=== PATIENT | female | born 1965 | race Caucasian/White ===

== ENCOUNTER 2020-09-03 12:33 | Inpatient (IN) ==
[2020-09-03] MEDS ORDERED: 0.9 % SODIUM CHLORIDE 2,000 ML IV ONE (12:56)
[2020-09-03] MEDS ORDERED: ALBUTEROL SULFATE 200 PUFF INHALER INH ONE ×2 (12:56→15:40)
[2020-09-03] MEDS ORDERED: ASPIRIN 81 MG TAB.CHEW CHEWED ONE (12:56)
[2020-09-03] MEDS ORDERED: REMDESIVIR 200 MG in 0.9 % SODIUM CHLORIDE 250 ML IV ONE ×2 (12:56→17:15)
[2020-09-03] MEDS ORDERED: methylPREDNISolone SOD SUCC 125 MG/2 ML VIAL IV ONE (12:56)
--- NOTE | 2020-09-03 13:05 | Emergency Department Note ---
HPI General Chief complaint: Cold/Flu Symptoms Stated complaint: SOB, cough, weakness Time Seen by Provider: 09/03/20 12:46 Source: patient Mode of arrival: wheelchair Limitations: no limitations History of Present Illness HPI Narrative: Narrative: 54-year-old female has been sick for 14 days now. She tested positive for Covid on the fourth or approximately 9 days ago. She is not having significant dyspnea or chest pain. She is having a tight cough that is productive. She is concerned she has pneumonia. She has had fevers nausea but no vomiting diarrhea or belly pain. Less urinating Related Data Home Medications Medication Instructions Recorded Confirmed estradiol [Minivelle] 1 ea TD .TWICE A WEEK 11/16/16 09/03/20 metformin 1,000 mg PO DAILY 09/03/20 09/03/20 Previous Rx's Medication Instructions Recorded albuterol sulfate [Ventolin] 2 puff INH Q4-6HP PRN #1 inhaler 11/16/16 Allergies Allergy/AdvReac Type Severity Reaction Status Date / Time morphine Allergy Intermediate Confusion Verified 05/24/19 09:52 doxycycline Allergy Unknown Hives Verified 11/16/16 16:23 Review of Systems ROS ROS Narrative: Narrative: All systems ED: reviewed and negative except as stated. PFSH Narrative Patient History Narrative: Narrative: Medical/Surgical/Family History All Active Problems Diabetes mellitus type 2, controlled, without complications (Acute) Influenza A (Acute) Gastritis (Acute) Pneumonia due to 2019 novel coronavirus (Acute) Medical History Influenza A (Acute) Surgical History H/O: hysterectomy (Acute) History of (Acute) History of tonsillectomy (Acute) Social History Smoking Status: Never smoker Exam Narrative Narrative: Narrative: Some distress secondary to shortness of breath. Patient is requiring oxygen because of saturations in the 80s. She is on nasal cannula oxygen at this time. Normocephalic atraumatic. She conjunctive are clear sclerae white nonicteric. No nasal discharge or congestion. Oropharynx pink But with dry buccal mucosa. Neck is supple without lymphadenopathy thyromegaly. Heart is regular rate and rhythm no murmur appreciated. Lungs are with crackles bilaterally. I do not hear any wheezes or rhonchi however. She cannot take a deep breath without significant coughing fits. Cough is productive. Abdomen is soft nontender nondistended. No peritoneal signs or guarding. No pedal edema. +2 radial pulse. Alert oriented able to answer questions appropriately but cannot talk in full sentences secondary to dyspnea General Limitations: no limitations Course Vital Signs Vital signs: Vital Signs Temperature 98.3 F 09/03/20 12:36 Pulse Rate 87 09/03/20 12:36 Respiratory Rate 22 09/03/20 12:36 Blood Pressure 138/82 09/03/20 12:36 Pulse Oximetry (%) 93 09/03/20 12:36 Temperature 98.8 F 09/03/20 21:36 Pulse Rate 83 09/03/20 21:47 Respiratory Rate 25 H 09/03/20 21:47 Blood Pressure 140/90 09/03/20 21:47 Pulse Oximetry (%) 92 09/03/20 21:47 MDM MDM Narrative Medical decision making narrative: Narrative: Hypoxic from Covid pneumonia likely. Get chest x-ray start albuterol MDI instead of nebulizer secondary nebulizer risk. We will get basic laboratory. Patient will need to be come in the hospital because of oxygen needs. Start remdesivir steroids and aspirin. Because of the chest pain we will also check a troponin and EKG EKG is unrevealing. The albuterol MDI helped some so we gave her another 2 puffs; She still has a very tight cough that is when she tries to take a deep breath. Chest x-ray is consistent with Covid pneumonia. Her initial chemistries were hemolyzed so this had to be redrawn. Troponin was negative. I discussed the case with Dr. Diana our hospitalist. He agreed to accept the patient for further care and evaluation in the hospital Lab Data Lab results reviewed: Yes I reviewed the patient's lab results. Lab results narrative: ABG shows pH of 7.51 PCO2 39 PO2 69 On oxygen Result diagrams: 09/03/20 13:17 09/03/20 15:42 Labs: Lab Results 09/03/20 09/03/20 09/03/20 Range/Units 13:17 13:17 13:17 WBC 11.0 (4.5-11.0) K/mcL RBC 4.74 (4.00-5.20) M/mcL Hgb 13.2 (12.0-15.0) g/dL Hct 40.0 (36.0-48.0) % POC Hct (36-48) % MCV 84.4 (80.0-100.0) fL MCH 27.8 (26.0-34.0) pg MCHC 33.0 (31.0-36.0) g/dL RDW 13.4 (11.5-14.5) % Plt Count 475 H (140-440) K/mcL MPV 10.1 (7.4-10.4) fL Neut % (Auto) 71.5 (38.0-78.0) % Lymph % (Auto) 18.9 (15.0-49.0) % [place] % (Auto) 7.9 (1.0-12.0) % Eos % (Auto) 1.1 (0.0-7.0) % Baso % (Auto) 0.6 (0.0-2.0) % Lymph # (Auto) 2.08 (1.50-4.80) K/mcL [place] # (Auto) 0.87 (0.10-0.90) K/mcL Eos # (Auto) 0.12 (0.00-0.70) K/mcL Baso # (Auto) 0.07 (0.00-0.20) K/mcL Absolute Neutrophils 7.89 (1.80-8.00) K/mcL VBG Lactic Acid < 0.2 L (0.5-2.0) mmol/L POC Sodium (133-145) mEq/L Sodium TNP POC Potassium (3.3-5.1) mEql/L Potassium TNP POC Chloride (96-108) mEq/L Chloride TNP Carbon Dioxide TNP POC Total CO2 (22-30) mmol/L Anion Gap TNP POC BUN (6-20) mg/dL BUN TNP Creatinine TNP POC Creatinine (0.6-1.2) mg/dL GFR Calculation TNP Glucose TNP POC Glucose (70-105) mg/dL Calcium TNP POC WB Ioniz Calcium (1.16-1.32) mmEq/L Total Bilirubin TNP AST TNP ALT TNP Alkaline Phosphatase TNP Troponin T (<0.03) ng/mL NT-Pro-B Natriuret Pep 112.1 (<125.0) pg/mL Total Protein TNP Albumin TNP Globulin TNP Albumin/Globulin Ratio TNP Procalcitonin (<0.10) ng/mL 09/03/20 09/03/20 09/03/20 Range/Units 13:17 15:11 15:42 WBC (4.5-11.0) K/mcL RBC (4.00-5.20) M/mcL Hgb (12.0-15.0) g/dL Hct (36.0-48.0) % POC Hct 37 (36-48) % MCV (80.0-100.0) fL MCH (26.0-34.0) pg MCHC (31.0-36.0) g/dL RDW (11.5-14.5) % Plt Count (140-440) K/mcL MPV (7.4-10.4) fL Neut % (Auto) (38.0-78.0) % Lymph % (Auto) (15.0-49.0) % [place] % (Auto) (1.0-12.0) % Eos % (Auto) (0.0-7.0) % Baso % (Auto) (0.0-2.0) % Lymph # (Auto) (1.50-4.80) K/mcL [place] # (Auto) (0.10-0.90) K/mcL Eos # (Auto) (0.00-0.70) K/mcL Baso # (Auto) (0.00-0.20) K/mcL Absolute Neutrophils (1.80-8.00) K/mcL VBG Lactic Acid (0.5-2.0) mmol/L POC Sodium 137 (133-145) mEq/L Sodium 134 POC Potassium 3.9 (3.3-5.1) mEql/L Potassium 4.1 POC Chloride 100 (96-108) mEq/L Chloride 99 Carbon Dioxide 24 POC Total CO2 27 (22-30) mmol/L Anion Gap 11.0 POC BUN 7 (6-20) mg/dL BUN 8 Creatinine 0.5 L POC Creatinine 0.4 L (0.6-1.2) mg/dL GFR Calculation 108 Glucose 247 H POC Glucose 249 H (70-105) mg/dL Calcium 8.6 POC WB Ioniz Calcium 1.09 L (1.16-1.32) mmEq/L Total Bilirubin 0.4 AST 35 H ALT 47 H Alkaline Phosphatase 102 Troponin T < 0.01 (<0.03) ng/mL NT-Pro-B Natriuret Pep (<125.0) pg/mL Total Protein 7.0 Albumin 3.0 L Globulin 4.0 H Albumin/Globulin Ratio 0.8 L Procalcitonin 0.10 H (<0.10) ng/mL Radiology Data Radiology results reviewed: Yes I reviewed the patient's radiology results. Radiology results narrative: Chest x-ray compatible with Covid pneumonia EKG Data EKG #1: EKG attestation: Yes I reviewed and interpreted this EKG. EKG results narrative: EKG showsNormal sinus rhythm without evidence of ACS Discharge Plan Patient/Caregiver Discharge Instructions Pt seen by BATTERY INSPECTOR/PA only: No Clinical Impression: Pneumonia due to 2019 novel coronavirus Patient Disposition: Xfer As Inpt ([facility] [place] Condition: Fair Discharge Date/Time: 09/03/20 21:10 Discharge Location: [facility] Inpatient Discharge Comment: [id number]
--- NOTE | 2020-09-03 13:14 | XRay Report ---
CLINICAL INFORMATION: COVID pneumonia COMPARISON: 11/16/2016 FINDINGS: Heart is mildly enlarged, but unchanged given differences in technique. Mediastinum and pulmonary vessels are normal. Moderate patchy infiltrates are seen in both mid and lower lungs - slightly more prominent on the left side. No effusion IMPRESSION: Moderate sized patchy infiltrate in both mid and lower lungs. This would be compatible Covid pneumonia Interpreted and Authenticated by: Forrest Woods 09/03/20
[2020-09-03 14:34] LABS: Basophils # (Auto) 0.07 K/mcL (0.00-0.20); Basophils % (Auto) 0.6 % (0.0-2.0); Eosinophils # (Auto) 0.12 K/mcL (0.00-0.70); Eosinophils % (Auto) 1.1 % (0.0-7.0); Hemoglobin 13.2 g/dL (12.0-15.0); Lymphocytes # (Auto) 2.08 K/mcL (1.50-4.80); Lymphocytes % (Auto) 18.9 % (15.0-49.0); Mean Cell Volume 84.4 fL (80.0-100.0); Mean Platelet Volume 10.1 fL (7.4-10.4); Monocytes # (Auto) 0.87 K/mcL (0.10-0.90); Monocytes % (Auto) 7.9 % (1.0-12.0); Neutrophils % (Auto) 71.5 % (38.0-78.0); Platelet Count 475 K/mcL (140-440); RBC 4.74 M/mcL (4.00-5.20); Red Cell Distribution Width 13.4 % (11.5-14.5)
[2020-09-03 14:57] LABS: proBNP 112.1 pg/mL (<125.0)
[2020-09-03 16:03] LABS: POC Blood Urea Nitrogen 7 mg/dL (6-20); POC CO2 27 mmol/L (22-30); POC Calcium, Ionized 1.09 mmEq/L (1.16-1.32); POC Chloride 100 mEq/L (96-108); POC Creatinine 0.4 mg/dL (0.6-1.2); POC Glucose, Random 249 mg/dL (70-105); POC Hematocrit 37 % (36-48); POC Potassium 3.9 mEql/L (3.3-5.1); POC Sodium 137 mEq/L (133-145)
[2020-09-03 17:01] LABS: ALT/SGPT 47 U/L (<40); AST/SGOT 35 U/L (<32); Albumin/Globulin Ratio 0.8 (1.0-2.3); Alkaline Phosphatase 102 U/L (39-117); Bilirubin,Total 0.4 mg/dL (0.1-1.0); Blood Urea Nitrogen 8 mg/dL (6-20); Calcium 8.6 mg/dL (8.6-10.4); Carbon Dioxide 24 mmol/L (22-30); Chloride 99 mmol/L (96-108); Glomerular Filtration Rate 108; Glucose 247 mg/dL (70-105)
[2020-09-03] MEDS ORDERED: ALBUTEROL SULFATE 2.5 MG/3 ML NEBULIZER INH PRN ×2 (20:36→21:46)
[2020-09-03] MEDS ORDERED: ACETAMINOPHEN 325 MG TABLET PO PRN (20:36)
[2020-09-03] MEDS ORDERED: ONDANSETRON 4 MG/2 ML VIAL IV PRN ×2 (20:36→21:46)
[2020-09-03] MEDS ORDERED: DEXTROSE 50% 50 ML VIAL IV PRN ×2 (20:41→21:46)
[2020-09-03] MEDS ORDERED: DEXTROSE 31 GM ORAL.SUSP PO PRN ×2 (20:41→21:46)
[2020-09-03] MEDS ORDERED: REMDESIVIR 100 MG in 0.9 % SODIUM CHLORIDE 250 ML IV SCH (20:45)
[2020-09-03] MEDS ORDERED: ALBUTEROL SULFATE 200 PUFF INHALER INH PRN ×2 (20:48→21:46)
[2020-09-03] MEDS ORDERED: 0.9 % SODIUM CHLORIDE 250 ML IV ONE ×2 (20:48→21:46)
--- NOTE | 2020-09-03 20:59 | Internal Med History&Physical ---
HPI History of Present Illness Patient information: Note initiated : 09/03/20 at 8:50 pm Service Date, if different from initiated Date: [] Patient: Kristi Monroy a 54 y/o F admitted on for SOB, cough, weakness. Chief Complaint: [] History of present illness: Ms. Monroy is a 54 year old F with a past medical history of diabetes who presented to ER due to shortness of breath. As per patient, she has been feeling sick since Halloween. She had a positive COVID-19 test about 9 days ago. She has been having cough with small amount of sputum and shortness of breath for more than 1 week. She also complains of chest tightness. Otherwise she is fine. Denies headache, dizziness, abdominal pain, nausea, vomiting, or dysuria. In the ER, she was found to have oxygen desaturation 80+. Chest x-ray showed bilateral pneumonia compatible with COVID- 19 pneumonia. Review of Systems Review of systems: Positive for shortness of breath and cough. All other systems were reviewed and are negative. PFSH PFSH All Active Problems Diabetes mellitus type 2, controlled, without complications (Acute) Influenza A (Acute) Gastritis (Acute) Pneumonia due to 2019 novel coronavirus (Acute) Medical History Influenza A (Acute) Surgical History H/O: hysterectomy (Acute) History of (Acute) History of tonsillectomy (Acute) Social History smoking status: Never smoker MEDS/ALLERGIES Home Medications and Allergies Home Medications Medication Instructions Recorded Confirmed Type albuterol sulfate [Ventolin] 2 puff INH Q4-6HP PRN #1 inhaler 11/16/16 09/03/20 Rx estradiol [Minivelle] 1 ea TD .TWICE A WEEK 11/16/16 09/03/20 History metformin 1,000 mg PO DAILY 09/03/20 09/03/20 History Allergies Allergy/AdvReac Type Severity Reaction Status Date / Time morphine Allergy Intermediate Confusion Verified 05/24/19 09:52 doxycycline Allergy Unknown Hives Verified 11/16/16 16:23 EXAM Constitutional Vitals: Temp Pulse Resp BP Pulse Ox 98.3 F 89 24 H 85/53 94 09/03/20 12:36 09/03/20 19:46 09/03/20 18:46 09/03/20 19:46 09/03/20 19:46 Additional findings Additional findings: General - No acute distress Eyes - PERRLA, EOM intact ENT no rhinorrhea, no noticeable or palpable swelling, no redness or rash around throat or on face Neck supple, no JVD, no thyromegaly Respiratory: Lungs -bibasilar crackles Cardiovascular - RRR no m/r/g, GI - Normal bowel sounds, no distended, soft. Extremeties - No edema, cyanosis or clubbing Hemo/lymphatic/immune no lymphadenopathy Neurological Alert and oriented x 3, no focal neurological deficits. Psychiatry flat affect DATA Data Completed and Pending Labs: Labs from last 24 hours 09/03/20 09/03/20 09/03/20 15:42 15:11 13:17 WBC RBC Hgb Hct POC Hct 37 MCV MCH MCHC RDW Plt Count MPV Neut % (Auto) Lymph % (Auto) [place] % (Auto) Eos % (Auto) Baso % (Auto) Lymph # (Auto) [place] # (Auto) Eos # (Auto) Baso # (Auto) Absolute Neutrophils VBG Lactic Acid POC Sodium 137 Sodium 134 POC Potassium 3.9 Potassium 4.1 POC Chloride 100 Chloride 99 Carbon Dioxide 24 POC Total CO2 27 Anion Gap 11.0 POC BUN 7 BUN 8 Creatinine 0.5 L POC Creatinine 0.4 L GFR Calculation 108 Glucose 247 H POC Glucose 249 H Calcium 8.6 POC WB Ioniz Calcium 1.09 L Total Bilirubin 0.4 AST 35 H ALT 47 H Alkaline Phosphatase 102 Troponin T < 0.01 NT-Pro-B Natriuret Pep Total Protein 7.0 Albumin 3.0 L Globulin 4.0 H Albumin/Globulin Ratio 0.8 L Procalcitonin 0.10 H 09/03/20 09/03/20 09/03/20 13:17 13:17 13:17 WBC RBC Hgb Hct POC Hct MCV MCH MCHC RDW Plt Count MPV Neut % (Auto) Lymph % (Auto) [place] % (Auto) Eos % (Auto) Baso % (Auto) Lymph # (Auto) [place] # (Auto) Eos # (Auto) Baso # (Auto) Absolute Neutrophils VBG Lactic Acid < 0.2 L POC Sodium Sodium TNP POC Potassium Potassium TNP POC Chloride Chloride TNP Carbon Dioxide TNP POC Total CO2 Anion Gap TNP POC BUN BUN TNP Creatinine TNP POC Creatinine GFR Calculation TNP Glucose TNP POC Glucose Calcium TNP POC WB Ioniz Calcium Total Bilirubin TNP AST TNP ALT TNP Alkaline Phosphatase TNP Troponin T Pending NT-Pro-B Natriuret Pep 112.1 Total Protein TNP Albumin TNP Globulin TNP Albumin/Globulin Ratio TNP Procalcitonin 09/03/20 13:17 WBC 11.0 RBC 4.74 Hgb 13.2 Hct 40.0 POC Hct MCV 84.4 MCH 27.8 MCHC 33.0 RDW 13.4 Plt Count 475 H MPV 10.1 Neut % (Auto) 71.5 Lymph % (Auto) 18.9 [place] % (Auto) 7.9 Eos % (Auto) 1.1 Baso % (Auto) 0.6 Lymph # (Auto) 2.08 [place] # (Auto) 0.87 Eos # (Auto) 0.12 Baso # (Auto) 0.07 Absolute Neutrophils 7.89 VBG Lactic Acid POC Sodium Sodium POC Potassium Potassium POC Chloride Chloride Carbon Dioxide POC Total CO2 Anion Gap POC BUN BUN Creatinine POC Creatinine GFR Calculation Glucose POC Glucose Calcium POC WB Ioniz Calcium Total Bilirubin AST ALT Alkaline Phosphatase Troponin T NT-Pro-B Natriuret Pep Total Protein Albumin Globulin Albumin/Globulin Ratio Procalcitonin A/P Narrative A/P Narrative: 1. Acute hypoxic respiratory failure Oxygen desaturation in the ER 80+ Pulse ox Oxygen therapy to keep oxygen saturations greater than 93% 2. Pneumonia, Covid 19 3. Positive covid 19 Chest x-ray showed moderate sized patchy infiltrate in both mid and lower lungs. This would be compatible Covid pneumonia. Blood culture Sputum culture MRSA screen Procalcitonin 0.10, lactic acid, D-dimer, CRP, ferritin, troponin 4. Transaminitis Repeat liver function morning 5. DM type 2 Diabetic diet Insulin sliding scale Adjust insulin based on blood sugar levels Metformin is on hold 6. DVT prophylaxis: Lovenox Time Spent With Patient Time: Total time spent is greater than 50% in coordination of care (as documented) at patient's floor/unit and/or counseling patient:
[2020-09-03] MEDS ORDERED: INSULIN LISPRO 1 UNIT/0.01 ML UNIT SQ SCH (21:00)
[2020-09-03] MEDS ORDERED: ESTRADIOL TD SCH ×2 (21:00→21:46)
[2020-09-03] MEDS ORDERED: 0.9 % SODIUM CHLORIDE 10 ML SYRINGE IV SCH (22:00)
[2020-09-03] MEDS: 0.9 % SODIUM CHLORIDE 10 ML SYRINGE IV SCH ×2 (22:05→23:50)
[2020-09-03] MEDS ORDERED: INSULIN LISPRO 1 UNIT/0.01 ML UNIT SQ ONE ×2 (22:10→22:22)
[2020-09-03 22:53] LABS: Phosphorous 4.4 mg/dL (2.5-4.5)
[2020-09-03 23:13] LABS: Estimated Average Glucose(eAG) 223 mg/dL; Hemoglobin A1C 9.4 % Hgb (4.0-6.0)
[2020-09-04] MEDS: ACETAMINOPHEN 325 MG TABLET PO PRN ×2 (00:09→19:50)
[2020-09-04] MEDS ORDERED: INSULIN LISPRO 1 UNIT/0.01 ML UNIT SQ ONE ×2 (00:12→00:23)
[2020-09-04] MEDS: 0.9 % SODIUM CHLORIDE 10 ML SYRINGE IV SCH ×4 (06:00→21:18)
[2020-09-04 07:21] LABS: Basophils # (Auto) 0.05 K/mcL (0.00-0.20); Basophils % (Auto) 0.5 % (0.0-2.0); Eosinophils # (Auto) 0.01 K/mcL (0.00-0.70); Eosinophils % (Auto) 0.1 % (0.0-7.0); Hematocrit 38.2 % (36.0-48.0); Hemoglobin 12.3 g/dL (12.0-15.0); Lymphocytes # (Auto) 1.75 K/mcL (1.50-4.80); Mean Cell Volume 86.8 fL (80.0-100.0); Mean Corpuscular HGB Conc 32.2 g/dL (31.0-36.0); Monocytes # (Auto) 0.64 K/mcL (0.10-0.90); Monocytes % (Auto) 5.8 % (1.0-12.0); Neutrophils % (Auto) 77.6 % (38.0-78.0); Platelet Count 507 K/mcL (140-440); Red Cell Distribution Width 13.4 % (11.5-14.5)
[2020-09-04 08:38] LABS: ALT/SGPT 42 U/L (<40); AST/SGOT 28 U/L (<32); Albumin 2.9 gm/dL (3.2-5.2); Albumin/Globulin Ratio 0.7 (1.0-2.3); Alkaline Phosphatase 101 U/L (39-117); Bilirubin,Total 0.3 mg/dL (0.1-1.0); Blood Urea Nitrogen 13 mg/dL (6-20); Calcium 9.6 mg/dL (8.6-10.4); Carbon Dioxide 25 mmol/L (22-30); Chloride 101 mmol/L (96-108); Globulin 4.1 gm/dL (2.2-3.7); Glomerular Filtration Rate 102; Glucose 264 mg/dL (70-105)
[2020-09-04] MEDS: DEXAMETHASONE 4 MG TABLET PO SCH (08:52)
[2020-09-04] MEDS: VITAMIN D3 1,000 UNIT TABLET PO SCH (08:52)
[2020-09-04] MEDS: THIAMINE 100 MG TABLET PO SCH (08:52)
[2020-09-04] MEDS ORDERED: ENOXAPARIN 40 MG/0.4 ML SYRINGE SQ SCH ×3 (09:00)
[2020-09-04] MEDS ORDERED: DEXAMETHASONE 4 MG TABLET PO SCH (09:00)
[2020-09-04] MEDS ORDERED: THIAMINE 100 MG TABLET PO SCH (09:00)
[2020-09-04] MEDS ORDERED: VITAMIN D3 1,000 UNIT TABLET PO SCH (09:00)
[2020-09-04] MEDS: INSULIN LISPRO 1 UNIT/0.01 ML UNIT SQ SCH ×5 (09:28→23:35)
[2020-09-04] MEDS: REMDESIVIR 100 MG in 0.9 % SODIUM CHLORIDE 250 ML IV SCH (09:42)
--- NOTE | 2020-09-04 13:32 | Internal Med Progress Note ---
SUBJECTIVE Subjective Patient information: Note initiated : 09/04/20 at 1:23 pm Service Date, if different from initiated Date: [] Patient: Kristi Monroy a 54 y/o F admitted on 09/03/20 for SOB, cough, weakness. Chief Complaint: [] Ms. Monroy is a 54 year old F with a past medical history of diabetes who presented to ER due to shortness of breath. As per patient, she has been feeling sick since Halloween. She had a positive COVID-19 test about 9 days ago. She has been having cough with small amount of sputum and shortness of breath for more than 1 week. She also complains of chest tightness. Otherwise she is fine. Denies headache, dizziness, abdominal pain, nausea, vomiting, or dysuria. In the ER, she was found to have oxygen desaturation 80+. Chest x-ray showed bilateral pneumonia compatible with COVID-19 pneumonia. 09/04 Patient feels fine even though she needs more oxygen. She is now on BiPAP. ABG showed 7.49/37/66/94.3 Instructed RN to close monitor her and pain attention to SpO2 and if he is using accessary muscles. Her blood sugar is high. I Lantus to 10 units daily. Review of Systems Review of systems: Positive for shortness of breath and cough. All other systems were reviewed and are negative. Constitutional Vitals: Vital Signs Temp Pulse Resp BP Pulse Ox 98.0 F 82 22 121/74 94 09/04/20 05:46 09/04/20 12:53 09/04/20 12:53 09/04/20 06:01 09/04/20 12:53 Period Temp Pulse Resp BP Sys/Taylor Pulse Ox Last 24 Hr 97.8 F-98.8 F 67-93 14-28 85-159/53-95 90-97 Intake and Output 09/03/20 09/04/20 09/04/20 21:59 05:59 13:59 Intake Total 2250 490 Output Total 475 525 Balance 1775 -35 Weight 102.058 kg Intake & Output: Intake & Output 09/03/20 09/04/20 09/04/20 21:59 05:59 13:59 Intake Total 2250 490 Output Total 475 525 Balance 1775 -35 Weight 102.058 kg Intake: IV 2250 250 Sodium Chloride 0.9% 2,000 ml @ 2000 Wide Open IV .Q0M ONE Rx#: [id number] Sodium Chloride 0.9% 250 ml @ 250 Wide Open IV BOLUS ONE Rx#: [id number] Veklury 200 mg In Sodium 250 Chloride 0.9% 250 ml @ 500 mls/ hr IV ONCE ONE Rx#:[id number] Oral 240 Output: Void Amount 475 525 Other: Urine Appearance Clear Clear Urine Color Bright Yellow Dark Yellow Urine Odor Normal Normal Additional findings Additional findings: General - No acute distress Eyes - PERRLA, EOM intact ENT no rhinorrhea, no noticeable or palpable swelling, no redness or rash around throat or on face Neck supple, no JVD, no thyromegaly Respiratory: Lungs -bibasilar crackles Cardiovascular - RRR no m/r/g, GI - Normal bowel sounds, no distended, soft. Extremeties - No edema, cyanosis or clubbing Hemo/lymphatic/immune no lymphadenopathy Neurological Alert and oriented x 3, no focal neurological deficits. Psychiatry flat affect OBJ DATA Labs CBC & Chem 7: 09/04/20 05:00 09/04/20 05:00 Labs: Abnormal Lab Results 09/04/20 09/04/20 09/03/20 05:00 05:00 21:35 Plt Count 507 H Absolute Neutrophils 8.51 H D-Dimer 1.48 H VBG Lactic Acid Creatinine POC Creatinine Glucose 264 H POC Glucose Hemoglobin A1c POC WB Ioniz Calcium AST ALT 42 H C-Reactive Protein NT-Pro-B Natriuret Pep Albumin 2.9 L Globulin 4.1 H Albumin/Globulin Ratio 0.7 L 25-OH Vitamin D Total Procalcitonin 09/03/20 09/03/20 09/03/20 21:35 21:34 15:42 Plt Count Absolute Neutrophils D-Dimer VBG Lactic Acid Creatinine 0.5 L POC Creatinine 0.4 L Glucose 247 H POC Glucose 249 H Hemoglobin A1c 9.4 H POC WB Ioniz Calcium 1.09 L AST 35 H ALT 47 H C-Reactive Protein 12.80 H NT-Pro-B Natriuret Pep 133.0 H Albumin 3.0 L Globulin 4.0 H Albumin/Globulin Ratio 0.8 L 25-OH Vitamin D Total 15.64 L Procalcitonin 09/03/20 09/03/20 09/03/20 13:17 13:17 13:17 Plt Count 475 H Absolute Neutrophils D-Dimer VBG Lactic Acid < 0.2 L Creatinine POC Creatinine Glucose POC Glucose Hemoglobin A1c POC WB Ioniz Calcium AST ALT C-Reactive Protein NT-Pro-B Natriuret Pep Albumin Globulin Albumin/Globulin Ratio 25-OH Vitamin D Total Procalcitonin 0.10 H Meds: Medications Acetaminophen (Tylenol) 650 mg PO Q8HP PRN; Protocol PRN Reason: Per Pain Protocol/Fever > 101 Last Admin: 09/04/20 00:09 Dose: 650 mg Documented by: Albuterol Sulfate (Ventolin) 2 puff INH Q4-6HP PRN PRN Reason: Wheezing Dexamethasone (Decadron) 6 mg PO DAILY [facility] Last Admin: 09/04/20 08:52 Dose: 6 mg Documented by: Dextrose (Dextrose 50%) 0 ml IV UD PRN PRN Reason: Hypoglycemia Diagnostic Test (Pha) (Accu-Chek) 1 each FS [facility] Last Admin: 09/04/20 12:03 Dose: 1 each Documented by: Enoxaparin Sodium (Lovenox) 100 mg SQ BID [facility] Last Admin: 09/04/20 09:11 Dose: 100 mg Documented by: Glucose (Insta-Glucose) 15 gm PO PRN PRN PRN Reason: Hypoglycemia REMDESIVIR 100 mg/ Sodium (Chloride) 250 mls @ 500 mls/hr IV DAILY [facility] Stop: 09/07/20 09:29 Last Admin: 09/04/20 09:42 Dose: 500 mls/hr Documented by: Insulin Glargine (Lantus) 10 unit SQ DAILY [facility] Insulin Human Lispro (Humalog) 0 unit SQ [facility]; Protocol Last Admin: 09/04/20 12:03 Dose: 10 unit Documented by: Ondansetron HCl (Zofran) 4 mg IV Q4HP PRN; Protocol PRN Reason: Nausea And Vomiting Sodium Chloride (Saline Flush) 10 ml IV Q8 [facility] Last Admin: 09/04/20 06:00 Dose: 10 ml Documented by: Thiamine HCl (Vitamin B1) 100 mg PO DAILY [facility] Last Admin: 09/04/20 08:52 Dose: 100 mg Documented by: Vitamin D (Vitamin D3) 1,000 unit PO DAILY [facility] Last Admin: 09/04/20 08:52 Dose: 1,000 unit Documented by: A/P Narrative A/P Narrative: 1. Acute hypoxic respiratory failure Oxygen desaturation in the ER 80+ Pulse ox Oxygen therapy to keep oxygen saturations greater than 93% she needs more oxygen. She is now on BiPAP. ABG showed 7.49/37/66/94.3 2. Pneumonia, Covid 19 3. Positive covid 19 Chest x-ray showed moderate sized patchy infiltrate in both mid and lower lungs. This would be compatible Covid pneumonia. Blood culture pending Sputum culture pending MRSA screen negative Procalcitonin 0.10, lactic acid 2.0 D-dimer 1.48 CRP 10.8 ferritin troponin < 0.01 x 3 Vitamin D 15.64 Continue dexamethasone 6 mg p.o. daily, remdesivir 5-day course, Lovenox 100 mg twice daily 4. Transaminitis Improving Repeat liver function morning 5. DM type 2 Hemoglobin A1c 9.4 Diabetic diet Added Lantus 10 units daily Insulin sliding scale Adjust insulin based on blood sugar levels Metformin is on hold 6. DVT prophylaxis: Lovenox Time Spent With Patient Time: Total time spent is greater than 50% in coordination of care (as documented) at patient's floor/unit and/or counseling patient: QUALITY Stroke Symptom Onset Unknown: No VTE Deep Vein Thrombosis/Pulmonary Embolism Present on Admission: No
[2020-09-04] MEDS ORDERED: INSULIN GLARGINE, HUMAN 1 UNIT/0.01 ML SQ ONE ×2 (18:13→18:43)
[2020-09-04] MEDS ORDERED: cefTRIAXone 2 GM in DEXTROSE 5% IN WATER 50 ML IV SCH (18:30)
[2020-09-04] MEDS ORDERED: cefTRIAXone 1 GM VIAL ONE (18:41)
[2020-09-04] MEDS: AZITHROMYCIN 500 MG in DEXTROSE 5% IN WATER 250 ML IV SCH (19:49)
[2020-09-04] MEDS: cefTRIAXone 2 GM in DEXTROSE 5% IN WATER 50 ML IV SCH (19:50)
[2020-09-04] MEDS: ENOXAPARIN 100 MG/ML SYRINGE SQ SCH (21:17)
[2020-09-05] MEDS: ACETAMINOPHEN 325 MG TABLET PO PRN ×2 (02:36→21:17)
[2020-09-05] MEDS: INSULIN LISPRO 1 UNIT/0.01 ML UNIT SQ SCH ×5 (02:36→21:16)
[2020-09-05] MEDS: 0.9 % SODIUM CHLORIDE 10 ML SYRINGE IV SCH ×3 (06:55→22:30)
[2020-09-05 07:02] LABS: ALT/SGPT 33 U/L (<40); AST/SGOT 18 U/L (<32); Albumin 2.6 gm/dL (3.2-5.2); Albumin/Globulin Ratio 0.7 (1.0-2.3); Alkaline Phosphatase 89 U/L (39-117); Bilirubin,Total 0.2 mg/dL (0.1-1.0); Blood Urea Nitrogen 18 mg/dL (6-20); Calcium 9.1 mg/dL (8.6-10.4); Carbon Dioxide 29 mmol/L (22-30); Chloride 101 mmol/L (96-108); Globulin 3.8 gm/dL (2.2-3.7); Glomerular Filtration Rate 102; Glucose 201 mg/dL (70-105)
[2020-09-05 07:13] LABS: Basophils # (Auto) 0.07 K/mcL (0.00-0.20); Basophils % (Auto) 0.5 % (0.0-2.0); Eosinophils # (Auto) 0.01 K/mcL (0.00-0.70); Eosinophils % (Auto) 0.1 % (0.0-7.0); Hematocrit 37.8 % (36.0-48.0); Hemoglobin 11.9 g/dL (12.0-15.0); Lymphocytes # (Auto) 2.46 K/mcL (1.50-4.80); Lymphocytes % (Auto) 16.5 % (15.0-49.0); Mean Cell Volume 88.3 fL (80.0-100.0); Mean Corpuscular HGB Conc 31.5 g/dL (31.0-36.0); Mean Platelet Volume 9.4 fL (7.4-10.4); Monocytes # (Auto) 1.02 K/mcL (0.10-0.90); Monocytes % (Auto) 6.8 % (1.0-12.0); Neutrophils % (Auto) 76.1 % (38.0-78.0); Platelet Count 530 K/mcL (140-440); RBC 4.28 M/mcL (4.00-5.20); Red Cell Distribution Width 13.8 % (11.5-14.5); WBC 14.9 K/mcL (4.5-11.0)
[2020-09-05] MEDS ORDERED: INSULIN GLARGINE, HUMAN 1 UNIT/0.01 ML SQ SCH (09:00)
[2020-09-05] MEDS: REMDESIVIR 100 MG in 0.9 % SODIUM CHLORIDE 250 ML IV SCH (10:05)
[2020-09-05] MEDS: cefTRIAXone 2 GM in DEXTROSE 5% IN WATER 50 ML IV SCH (10:05)
[2020-09-05] MEDS: ENOXAPARIN 100 MG/ML SYRINGE SQ SCH (10:05)
[2020-09-05] MEDS: AZITHROMYCIN 500 MG in DEXTROSE 5% IN WATER 250 ML IV SCH (10:06)
[2020-09-05] MEDS: VITAMIN D3 1,000 UNIT TABLET PO SCH (10:06)
[2020-09-05] MEDS: DEXAMETHASONE 4 MG TABLET PO SCH (10:06)
[2020-09-05] MEDS: THIAMINE 100 MG TABLET PO SCH (10:06)
--- NOTE | 2020-09-05 13:26 | Internal Med Progress Note ---
SUBJECTIVE Subjective Patient information: Note initiated : 09/05/20 at 1:22 pm Service Date, if different from initiated Date: [] Patient: Kristi Monroy 54 y/o F admitted on 09/03/20 for SOB, cough, weakness. Chief Complaint: [] Ms. Monroy is a 54 year old F with a past medical history of diabetes who presented to ER due to shortness of breath. As per patient, she has been feeling sick since Halloween. She had a positive COVID-19 test about 9 days ago. She has been having cough with small amount of sputum and shortness of breath for more than 1 week. She also complains of chest tightness. Otherwise she is fine. Denies headache, dizziness, abdominal pain, nausea, vomiting, or dysuria. In the ER, she was found to have oxygen desaturation 80+. Chest x-ray showed bilateral pneumonia compatible with COVID-19 pneumonia. 09/04 Patient feels fine even though she needs more oxygen. She is now on BiPAP. ABG showed 7.49/37/66/94.3 Instructed RN to close monitor her and pain attention to SpO2 and if he is using accessary muscles. Her blood sugar is high. I Lantus to 10 units daily. 09/05 Pt complains of mild headache. Denies n/v/d. She has been on BIPAP since yesterday. Good oxygen saturation with BIPAP WBC 14.9, d-dimer 1.48 No overnight event. Review of Systems Review of systems: Positive for shortness of breath and cough. All other systems were reviewed and are negative. Constitutional Vitals: Vital Signs Temp Pulse Resp BP Pulse Ox 97.7 F 59 L 21 96/65 99 09/05/20 05:00 09/05/20 12:15 09/05/20 12:15 09/05/20 05:10 09/05/20 12:15 Period Temp Pulse Resp BP Sys/Taylor Pulse Ox Last 24 Hr 97.7 F-98.8 F 52-78 16-29 89-123/50-76 96-99 Intake and Output 09/04/20 09/05/20 09/05/20 21:59 05:59 13:59 Intake Total 570 225 Output Total 325 525 Balance 245 -525 225 Weight 102.013 kg Intake & Output: Intake & Output 09/04/20 09/05/20 09/05/20 21:59 05:59 13:59 Intake Total 570 225 Output Total 325 525 Balance 245 -525 225 Weight 102.013 kg Intake: IV 250 Zithromax 500 mg In Dextrose 5% 250 in Water 250 ml @ 250 mls/hr IV DAILY [facility] Rx#:[id number] Oral 320 225 Output: Void Amount 325 525 Other: Urine Appearance Clear Clear Urine Color Dark Yellow Dark Yellow Urine Odor Normal Normal Additional findings Additional findings: General - No acute distress Eyes - PERRLA, EOM intact ENT no rhinorrhea, no noticeable or palpable swelling, no redness or rash around throat or on face Neck supple, no JVD, no thyromegaly Respiratory: Lungs -bibasilar crackles Cardiovascular - RRR no m/r/g, GI - Normal bowel sounds, no distended, soft. Extremeties - No edema, cyanosis or clubbing Hemo/lymphatic/immune no lymphadenopathy Neurological Alert and oriented x 3, no focal neurological deficits. Psychiatry flat affect OBJ DATA Labs CBC & Chem 7: 09/05/20 04:59 09/05/20 04:59 Labs: Abnormal Lab Results 09/05/20 09/05/20 09/04/20 04:59 04:59 05:00 WBC 14.9 H Hgb 11.9 L Plt Count 530 H Emmons # (Auto) 1.02 H Absolute Neutrophils 11.37 H D-Dimer VBG Lactic Acid Anion Gap 7.0 L Creatinine POC Creatinine Glucose 201 H 264 H POC Glucose Hemoglobin A1c POC WB Ioniz Calcium AST ALT 42 H C-Reactive Protein NT-Pro-B Natriuret Pep Albumin 2.6 L 2.9 L Globulin 3.8 H 4.1 H Albumin/Globulin Ratio 0.7 L 0.7 L 25-OH Vitamin D Total Procalcitonin 09/04/20 09/03/20 09/03/20 05:00 21:35 21:35 WBC Hgb Plt Count 507 H Emmons # (Auto) Absolute Neutrophils 8.51 H D-Dimer 1.48 H VBG Lactic Acid Anion Gap Creatinine POC Creatinine Glucose POC Glucose Hemoglobin A1c POC WB Ioniz Calcium AST ALT C-Reactive Protein NT-Pro-B Natriuret Pep Albumin Globulin Albumin/Globulin Ratio 25-OH Vitamin D Total 15.64 L Procalcitonin 11/09/03/20 09/03/20 21:34 15:42 13:17 WBC Hgb Plt Count Emmons # (Auto) Absolute Neutrophils D-Dimer VBG Lactic Acid Anion Gap Creatinine 0.5 L POC Creatinine 0.4 L Glucose 247 H POC Glucose 249 H Hemoglobin A1c 9.4 H POC WB Ioniz Calcium 1.09 L AST 35 H ALT 47 H C-Reactive Protein 12.80 H NT-Pro-B Natriuret Pep 133.0 H Albumin 3.0 L Globulin 4.0 H Albumin/Globulin Ratio 0.8 L 25-OH Vitamin D Total Procalcitonin 0.10 H 09/03/20 09/03/20 13:17 13:17 WBC Hgb Plt Count 475 H Emmons # (Auto) Absolute Neutrophils D-Dimer VBG Lactic Acid < 0.2 L Anion Gap Creatinine POC Creatinine Glucose POC Glucose Hemoglobin A1c POC WB Ioniz Calcium AST ALT C-Reactive Protein NT-Pro-B Natriuret Pep Albumin Globulin Albumin/Globulin Ratio 25-OH Vitamin D Total Procalcitonin Meds: Medications Acetaminophen (Tylenol) 650 mg PO Q8HP PRN; Protocol PRN Reason: Per Pain Protocol/Fever > 101 Last Admin: 09/05/20 02:36 Dose: 650 mg Documented by: Albuterol Sulfate (Ventolin) 2 puff INH Q4-6HP PRN PRN Reason: Wheezing Dexamethasone (Decadron) 6 mg PO DAILY [facility] Last Admin: 09/05/20 10:06 Dose: 6 mg Documented by: Dextrose (Dextrose 50%) 0 ml IV UD PRN PRN Reason: Hypoglycemia Diagnostic Test (Pha) (Accu-Chek) 1 each FS ACHS [facility] Last Admin: 09/05/20 11:30 Dose: 1 each Documented by: Enoxaparin Sodium (Lovenox) 100 mg SQ BID [facility] Last Admin: 09/05/20 10:05 Dose: 100 mg Documented by: Glucose (Insta-Glucose) 15 gm PO PRN PRN PRN Reason: Hypoglycemia REMDESIVIR 100 mg/ Sodium (Chloride) 250 mls @ 500 mls/hr IV DAILY [facility] Stop: 09/07/20 09:29 Last Admin: 09/05/20 10:05 Dose: 500 mls/hr Documented by: Azithromycin 500 mg/ Dextrose 250 mls @ 250 mls/hr IV DAILY [facility]; Protocol Stop: 09/06/20 09:59 Last Admin: 09/05/20 10:06 Dose: 250 mls/hr Documented by: Ceftriaxone Sodium 2 gm/ (Dextrose) 50 mls @ 100 mls/hr IV DAILY [facility]; Protocol Last Admin: 09/05/20 10:05 Dose: 100 mls/hr Documented by: Insulin Glargine (Lantus) 10 unit SQ DAILY [facility] Last Admin: 09/05/20 07:36 Dose: 10 unit Documented by: Insulin Human Lispro (Humalog) 0 unit SQ ACHS [facility]; Protocol Last Admin: 09/05/20 11:30 Dose: 10 unit Documented by: Ondansetron HCl (Zofran) 4 mg IV Q4HP PRN; Protocol PRN Reason: Nausea And Vomiting Sodium Chloride (Saline Flush) 10 ml IV Q8 [facility] Last Admin: 09/05/20 06:55 Dose: 10 ml Documented by: Thiamine HCl (Vitamin B1) 100 mg PO DAILY [facility] Last Admin: 09/05/20 10:06 Dose: 100 mg Documented by: Vitamin D (Vitamin D3) 1,000 unit PO DAILY [facility] Last Admin: 09/05/20 10:06 Dose: 1,000 unit Documented by: A/P Narrative A/P Narrative: 1. Acute hypoxic respiratory failure Oxygen desaturation in the ER 80+ Pulse ox Oxygen therapy to keep oxygen saturations greater than 93% she needs more oxygen. She is now on BiPAP. 2. Pneumonia, Covid 19 3. Positive covid 19 Chest x-ray showed moderate sized patchy infiltrate in both mid and lower lungs. This would be compatible Covid pneumonia. Blood culture pending Sputum culture pending MRSA screen negative Procalcitonin 0.10, lactic acid 2.0 D-dimer 1.48 CRP 10.8 ferritin troponin < 0.01 x 3 Vitamin D 15.64 Continue dexamethasone 6 mg p.o. daily, remdesivir 5-day course, Lovenox 100 mg twice daily 4. Transaminitis Improving Repeat liver function morning 5. DM type 2 Hemoglobin A1c 9.4 Diabetic diet Added Lantus 10 units daily Insulin sliding scale Adjust insulin based on blood sugar levels Metformin is on hold 6. DVT prophylaxis: Lovenox Time Spent With Patient Time: Total time spent is greater than 50% in coordination of care (as documented) at patient's floor/unit and/or counseling patient: QUALITY Stroke Symptom Onset Unknown: No VTE Deep Vein Thrombosis/Pulmonary Embolism Present on Admission: No
--- NOTE | 2020-09-05 14:21 | Internal Med Progress Note ---
SUBJECTIVE Subjective Patient information: Note initiated : 09/05/20 at 2:18 pm Service Date, if different from initiated Date: [] Patient: Kristi Monroy 54 y/o F admitted on 09/03/20 for SOB, cough, weakness. Chief Complaint: [] Interval history: Ms. Monroy is a 54 year old F with a past medical history of diabetes who presented to ER due to shortness of breath. As per patient, she has been feeling sick since Halloween. She had a positive COVID-19 test about 9 days ago. She has been having cough with small amount of sputum and shortness of breath for more than 1 week. She also complains of chest tightness. Otherwise she is fine. Denies headache, dizziness, abdominal pain, nausea, vomiting, or dysuria. In the ER, she was found to have oxygen desaturation 80+. Chest x-ray showed bilateral pneumonia compatible with COVID-19 pneumonia. 09/04 Patient feels fine even though she needs more oxygen. She is now on BiPAP. ABG showed 7.49/37/66/94.3 Instructed RN to close monitor her and pain attention to SpO2 and if he is using accessary muscles. Her blood sugar is high. I Lantus to 10 units daily. 09/05 Pt complains of mild headache. Denies n/v/d. She has been on BIPAP since yesterday. Good oxygen saturation with BIPAP WBC 14.9, d-dimer 1.48 No overnight event. Constitutional Vitals: Vital Signs Temp Pulse Resp BP Pulse Ox 97.7 F 59 L 21 96/65 99 09/05/20 05:00 09/05/20 12:15 09/05/20 12:15 09/05/20 05:10 09/05/20 12:15 Period Temp Pulse Resp BP Sys/Taylor Pulse Ox Last 24 Hr 97.7 F-98.8 F 52-78 16-29 89-123/50-76 96-99 Intake and Output 09/05/20 09/05/20 09/05/20 05:59 13:59 21:59 Intake Total 225 Output Total 525 Balance -525 225 Intake & Output: Intake & Output 09/05/20 09/05/20 09/05/20 05:59 13:59 21:59 Intake Total 225 Output Total 525 Balance -525 225 Intake: Oral 225 Output: Void Amount 525 Other: Urine Appearance Clear Urine Color Dark Yellow Urine Odor Normal Exam: General: Alert, Awake, No acute Distress Eyes/N/T: EOMI, Head/Neck: neck supple, CV: RRR, No murmurs, Pulm: b/l rhonchi, no wheezing Abd: soft, nontender, +BS x4 Ext: no clubbing/cyanosis/edema Neuro: Alert, no focal deficits, moves all extremities, Skin: warm/dry OBJ DATA Labs CBC & Chem 7: 09/05/20 04:59 09/05/20 04:59 Labs: Abnormal Lab Results 09/05/20 09/05/20 09/04/20 04:59 04:59 05:00 WBC 14.9 H Hgb 11.9 L Plt Count 530 H Dickey # (Auto) 1.02 H Absolute Neutrophils 11.37 H D-Dimer VBG Lactic Acid Anion Gap 7.0 L Creatinine POC Creatinine Glucose 201 H 264 H POC Glucose Hemoglobin A1c POC WB Ioniz Calcium AST ALT 42 H C-Reactive Protein NT-Pro-B Natriuret Pep Albumin 2.6 L 2.9 L Globulin 3.8 H 4.1 H Albumin/Globulin Ratio 0.7 L 0.7 L 25-OH Vitamin D Total Procalcitonin 09/04/20 09/03/20 09/03/20 05:00 21:35 21:35 WBC Hgb Plt Count 507 H Dickey # (Auto) Absolute Neutrophils 8.51 H D-Dimer 1.48 H VBG Lactic Acid Anion Gap Creatinine POC Creatinine Glucose POC Glucose Hemoglobin A1c POC WB Ioniz Calcium AST ALT C-Reactive Protein NT-Pro-B Natriuret Pep Albumin Globulin Albumin/Globulin Ratio 25-OH Vitamin D Total 15.64 L Procalcitonin 09/03/20 09/03/20 09/03/20 21:34 15:42 13:17 WBC Hgb Plt Count Dickey # (Auto) Absolute Neutrophils D-Dimer VBG Lactic Acid Anion Gap Creatinine 0.5 L POC Creatinine 0.4 L Glucose 247 H POC Glucose 249 H Hemoglobin A1c 9.4 H POC WB Ioniz Calcium 1.09 L AST 35 H ALT 47 H C-Reactive Protein 12.80 H NT-Pro-B Natriuret Pep 133.0 H Albumin 3.0 L Globulin 4.0 H Albumin/Globulin Ratio 0.8 L 25-OH Vitamin D Total Procalcitonin 0.10 H 09/03/20 09/03/20 13:17 13:17 WBC Hgb Plt Count 475 H Dickey # (Auto) Absolute Neutrophils D-Dimer VBG Lactic Acid < 0.2 L Anion Gap Creatinine POC Creatinine Glucose POC Glucose Hemoglobin A1c POC WB Ioniz Calcium AST ALT C-Reactive Protein NT-Pro-B Natriuret Pep Albumin Globulin Albumin/Globulin Ratio 25-OH Vitamin D Total Procalcitonin Meds: Medications Acetaminophen (Tylenol) 650 mg PO Q8HP PRN; Protocol PRN Reason: Per Pain Protocol/Fever > 101 Last Admin: 09/05/20 02:36 Dose: 650 mg Documented by: Albuterol Sulfate (Ventolin) 2 puff INH Q4-6HP PRN PRN Reason: Wheezing Dexamethasone (Decadron) 6 mg PO DAILY [facility] Last Admin: 09/05/20 10:06 Dose: 6 mg Documented by: Dextrose (Dextrose 50%) 0 ml IV UD PRN PRN Reason: Hypoglycemia Diagnostic Test (Pha) (Accu-Chek) 1 each FS ACHS [facility] Last Admin: 09/05/20 11:30 Dose: 1 each Documented by: Enoxaparin Sodium (Lovenox) 100 mg SQ BID [facility] Last Admin: 09/05/20 10:05 Dose: 100 mg Documented by: Glucose (Insta-Glucose) 15 gm PO PRN PRN PRN Reason: Hypoglycemia REMDESIVIR 100 mg/ Sodium (Chloride) 250 mls @ 500 mls/hr IV DAILY [facility] Stop: 09/07/20 09:29 Last Admin: 09/05/20 10:05 Dose: 500 mls/hr Documented by: Azithromycin 500 mg/ Dextrose 250 mls @ 250 mls/hr IV DAILY [facility]; Protocol Stop: 09/06/20 09:59 Last Admin: 09/05/20 10:06 Dose: 250 mls/hr Documented by: Ceftriaxone Sodium 2 gm/ (Dextrose) 50 mls @ 100 mls/hr IV DAILY [facility]; Protocol Last Admin: 09/05/20 10:05 Dose: 100 mls/hr Documented by: Insulin Glargine (Lantus) 10 unit SQ DAILY [facility] Last Admin: 09/05/20 07:36 Dose: 10 unit Documented by: Insulin Human Lispro (Humalog) 0 unit SQ ACHS [facility]; Protocol Last Admin: 09/05/20 11:30 Dose: 10 unit Documented by: Ondansetron HCl (Zofran) 4 mg IV Q4HP PRN; Protocol PRN Reason: Nausea And Vomiting Sodium Chloride (Saline Flush) 10 ml IV Q8 [facility] Last Admin: 09/05/20 06:55 Dose: 10 ml Documented by: Thiamine HCl (Vitamin B1) 100 mg PO DAILY [facility] Last Admin: 09/05/20 10:06 Dose: 100 mg Documented by: Vitamin D (Vitamin D3) 1,000 unit PO DAILY [facility] Last Admin: 09/05/20 10:06 Dose: 1,000 unit Documented by: A/P Narrative A/P Narrative: A: *Acute hypoxic respiratory failure: -requiring Bipap *COVID Pneumonia -cxr moderate patchy b/l infiltrate -Sputum culture pending, MRSA screen negative *Transaminitis: 2.2 above *DM type 2: A1c 9.4 P: -wean bipap as able -O2 support -IS/Acapella, prn nebs -self pronging as able -Continue dexamethasone 6 mg p.o. daily, remdesivir 5-day course, -cont Rocephin/Azithro -Diabetic diet, Added Lantus 10 units daily, SSI, Metformin is on hold -pt/ot -ppx: Lovenox Full code Time Spent With Patient Time: Total time spent is greater than 50% in coordination of care (as documented) at patient's floor/unit and/or counseling patient: QUALITY Stroke Symptom Onset Unknown: No VTE Deep Vein Thrombosis/Pulmonary Embolism Present on Admission: No
[2020-09-06] MEDS: INSULIN LISPRO 1 UNIT/0.01 ML UNIT SQ SCH ×8 (00:31→23:36)
[2020-09-06] MEDS: 0.9 % SODIUM CHLORIDE 10 ML SYRINGE IV SCH ×3 (04:15→20:54)
[2020-09-06 06:34] LABS: Basophils # (Auto) 0.02 K/mcL (0.00-0.20); Basophils % (Auto) 0.2 % (0.0-2.0); Eosinophils # (Auto) 0.02 K/mcL (0.00-0.70); Eosinophils % (Auto) 0.2 % (0.0-7.0); Hematocrit 38.3 % (36.0-48.0); Hemoglobin 12.2 g/dL (12.0-15.0); Lymphocytes # (Auto) 2.76 K/mcL (1.50-4.80); Mean Cell Volume 87.2 fL (80.0-100.0); Mean Corpuscular HGB Conc 31.9 g/dL (31.0-36.0); Mean Platelet Volume 9.2 fL (7.4-10.4); Monocytes # (Auto) 0.83 K/mcL (0.10-0.90); Monocytes % (Auto) 6.9 % (1.0-12.0); Neutrophils % (Auto) 69.7 % (38.0-78.0); Platelet Count 592 K/mcL (140-440); RBC 4.39 M/mcL (4.00-5.20); Red Cell Distribution Width 13.5 % (11.5-14.5)
[2020-09-06 07:13] LABS: ALT/SGPT 32 U/L (<40); AST/SGOT 17 U/L (<32); Albumin 3.1 gm/dL (3.2-5.2); Albumin/Globulin Ratio 0.8 (1.0-2.3); Alkaline Phosphatase 94 U/L (39-117); Bilirubin,Direct < 0.2 mg/dL (<0.3); Bilirubin,Total 0.3 mg/dL (0.1-1.0); Blood Urea Nitrogen 18 mg/dL (6-20); Calcium 9.2 mg/dL (8.6-10.4); Carbon Dioxide 28 mmol/L (22-30); Chloride 99 mmol/L (96-108); Globulin 3.7 gm/dL (2.2-3.7); Glomerular Filtration Rate 102; Glucose 223 mg/dL (70-105); Lactate Dehydrogenase 276 U/L (135-225); Phosphorous 3.4 mg/dL (2.5-4.5); Triglycerides 128 mg/dL (<150); Uric Acid 3.1 mg/dL (2.5-8.0)
[2020-09-06 07:24] LABS: C-Reactive Protein 3.2 mg/dL (0.03-0.80)
--- NOTE | 2020-09-06 07:32 | Internal Med Progress Note ---
SUBJECTIVE Subjective Patient information: Note initiated : 09/06/20 at 7:30 am Service Date, if different from initiated Date: [] Patient: Kristi Monroy 54 y/o F admitted on 09/03/20 for SOB, cough, weakness. Chief Complaint: [] Interval history: Ms. Monroy is a 54 year old F with a past medical history of diabetes who presented to ER due to shortness of breath. As per patient, she has been feeling sick since Halloween. She had a positive COVID-19 test about 9 days ago. She has been having cough with small amount of sputum and shortness of breath for more than 1 week. She also complains of chest tightness. Otherwise she is fine. Denies headache, dizziness, abdominal pain, nausea, vomiting, or dysuria. In the ER, she was found to have oxygen desaturation 80+. Chest x-ray showed bilateral pneumonia compatible with COVID-19 pneumonia. 09/04 Patient feels fine even though she needs more oxygen. She is now on BiPAP. ABG showed 7.49/37/66/94.3 Instructed RN to close monitor her and pain attention to SpO2 and if he is using accessary muscles. Her blood sugar is high. I Lantus to 10 units daily. 09/05 Pt complains of mild headache. Denies n/v/d. She has been on BIPAP since yesterday. Good oxygen saturation with BIPAP WBC 14.9, d-dimer 1.48 No overnight event. 09/06 Doing much better today. On 2 L of oxygen with good oxygenation. Patient feels shortness of breath is significantly improved. Has occasional cough. Le ukocytosis improving. CRP improved Review of Systems: denies headache/fever/chills/nausea/vomiting/chest or abdominal pain/cough/dyspnea/diarrhea. Otherwise see above. Constitutional Vitals: Vital Signs Temp Pulse Resp BP Pulse Ox 98.0 F 51 L 17 113/75 98 09/06/20 04:01 09/06/20 03:30 09/06/20 04:38 09/06/20 04:01 09/06/20 05:59 Period Temp Pulse Resp BP Sys/Taylor Pulse Ox Last 24 Hr 97.2 F-98.4 F 51-100 13-25 101-123/56-78 91-100 Intake and Output 09/05/20 09/06/20 09/06/20 21:59 05:59 13:59 Intake Total 1000 Output Total 1300 275 Balance -300 -275 Weight 101.514 kg Intake & Output: Intake & Output 09/05/20 09/06/20 09/06/20 21:59 05:59 13:59 Intake Total 1000 Output Total 1300 275 Balance -300 -275 Weight 101.514 kg Intake: IV 500 Zithromax 500 mg In Dextrose 5% 250 in Water 250 ml @ 250 mls/hr IV DAILY [facility] Rx#:[id number] Veklury 100 mg In Sodium 250 Chloride 0.9% 250 ml @ 500 mls/ hr IV DAILY [facility] Rx#:[id number] Oral 500 Output: Void Amount 1300 275 Other: Meal Dinner Percent of Meal Consumed 100% Feeding Ability Independent Urine Appearance Clear Clear Urine Color Bright Yellow Dark Yellow Urine Odor Normal Normal Exam: General: Alert, Awake, No acute Distress Eyes/N/T: EOMI, Head/Neck: neck supple, CV: RRR, No murmurs, Pulm: b/l rhonchi mild, no wheezing Abd: soft, nontender, +BS x4 Ext: no clubbing/cyanosis/edema Neuro: Alert, no focal deficits, moves all extremities, Skin: warm/dry Head Head exam: Present atraumatic and normal inspection Eye Eye exam: Present normal appearance ENT ENT exam: Present mucous membranes moist, normal exam and normal external ear exam Neck Neck exam: Present normal inspection Respiratory Respiratory exam: Present normal respiratory exam Cardiovascular Cardiovascular exam: Present normal rate and rhythm GI/Abdominal GI/Abdominal exam: Present normal bowel sounds Back Exam Back exam: Present normal inspection Neurological Exam Neurological exam: Present alert and oriented X3 Skin Skin exam: Present intact and warm OBJ DATA Labs CBC & Chem 7: 09/06/20 05:11 09/06/20 05:11 Labs: Abnormal Lab Results 09/06/20 09/06/20 09/06/20 05:11 05:11 05:11 WBC 12.0 H Hgb Plt Count 592 H Hamilton # (Auto) Absolute Neutrophils 8.36 H D-Dimer VBG Lactic Acid Anion Gap Creatinine POC Creatinine Glucose 223 H POC Glucose Hemoglobin A1c POC WB Ioniz Calcium GGT 47 H AST ALT Lactate Dehydrogenase 276 H C-Reactive Protein 3.20 H NT-Pro-B Natriuret Pep Albumin 3.1 L Globulin Albumin/Globulin Ratio 0.8 L 25-OH Vitamin D Total Procalcitonin 09/05/20 09/05/20 09/04/20 04:59 04:59 05:00 WBC 14.9 H Hgb 11.9 L Plt Count 530 H Hamilton # (Auto) 1.02 H Absolute Neutrophils 11.37 H D-Dimer VBG Lactic Acid Anion Gap 7.0 L Creatinine POC Creatinine Glucose 201 H 264 H POC Glucose Hemoglobin A1c POC WB Ioniz Calcium GGT AST ALT 42 H Lactate Dehydrogenase C-Reactive Protein NT-Pro-B Natriuret Pep Albumin 2.6 L 2.9 L Globulin 3.8 H 4.1 H Albumin/Globulin Ratio 0.7 L 0.7 L 25-OH Vitamin D Total Procalcitonin 09/04/20 09/03/20 09/03/20 05:00 21:35 21:35 WBC Hgb Plt Count 507 H Hamilton # (Auto) Absolute Neutrophils 8.51 H D-Dimer 1.48 H VBG Lactic Acid Anion Gap Creatinine POC Creatinine Glucose POC Glucose Hemoglobin A1c POC WB Ioniz Calcium GGT AST ALT Lactate Dehydrogenase C-Reactive Protein NT-Pro-B Natriuret Pep Albumin Globulin Albumin/Globulin Ratio 25-OH Vitamin D Total 15.64 L Procalcitonin 09/03/20 09/03/20 09/03/20 21:34 15:42 13:17 WBC Hgb Plt Count [place] # (Auto) Absolute Neutrophils D-Dimer VBG Lactic Acid Anion Gap Creatinine 0.5 L POC Creatinine 0.4 L Glucose 247 H POC Glucose 249 H Hemoglobin A1c 9.4 H POC WB Ioniz Calcium 1.09 L GGT AST 35 H ALT 47 H Lactate Dehydrogenase C-Reactive Protein 12.80 H NT-Pro-B Natriuret Pep 133.0 H Albumin 3.0 L Globulin 4.0 H Albumin/Globulin Ratio 0.8 L 25-OH Vitamin D Total Procalcitonin 0.10 H 09/03/20 09/03/20 13:17 13:17 WBC Hgb Plt Count 475 H Hamilton # (Auto) Absolute Neutrophils D-Dimer VBG Lactic Acid < 0.2 L Anion Gap Creatinine POC Creatinine Glucose POC Glucose Hemoglobin A1c POC WB Ioniz Calcium GGT AST ALT Lactate Dehydrogenase C-Reactive Protein NT-Pro-B Natriuret Pep Albumin Globulin Albumin/Globulin Ratio 25-OH Vitamin D Total Procalcitonin Meds: Medications Acetaminophen (Tylenol) 650 mg PO Q8HP PRN; Protocol PRN Reason: Per Pain Protocol/Fever > 101 Last Admin: 09/05/20 21:17 Dose: 650 mg Documented by: Albuterol Sulfate (Ventolin) 2 puff INH Q4-6HP PRN PRN Reason: Wheezing Dexamethasone (Decadron) 6 mg PO DAILY [facility] Last Admin: 09/05/20 10:06 Dose: 6 mg Documented by: Dextrose (Dextrose 50%) 0 ml IV UD PRN PRN Reason: Hypoglycemia Diagnostic Test (Pha) (Accu-Chek) 1 each FS Q4 [facility] Last Admin: 09/06/20 04:10 Dose: 1 each Documented by: Enoxaparin Sodium (Lovenox) 60 mg SQ DAILY [facility] Glucose (Insta-Glucose) 15 gm PO PRN PRN PRN Reason: Hypoglycemia REMDESIVIR 100 mg/ Sodium (Chloride) 250 mls @ 500 mls/hr IV DAILY [facility] Stop: 09/07/20 09:29 Last Infusion: 09/05/20 18:52 Dose: Infused Documented by: Azithromycin 500 mg/ Dextrose 250 mls @ 250 mls/hr IV DAILY [facility]; Protocol Stop: 09/06/20 09:59 Last Infusion: 09/05/20 18:53 Dose: Infused Documented by: Ceftriaxone Sodium 2 gm/ (Dextrose) 50 mls @ 100 mls/hr IV DAILY [facility]; Protocol Last Infusion: 09/05/20 10:40 Dose: Infused Documented by: Insulin Glargine (Lantus) 10 unit SQ DAILY [facility] Last Admin: 09/05/20 07:36 Dose: 10 unit Documented by: Insulin Human Lispro (Humalog) 0 unit SQ Q4 [facility]; Protocol Last Admin: 09/06/20 04:37 Dose: 6 units Documented by: Ondansetron HCl (Zofran) 4 mg IV Q4HP PRN; Protocol PRN Reason: Nausea And Vomiting Sodium Chloride (Saline Flush) 10 ml IV Q8 [facility] Last Admin: 09/06/20 04:15 Dose: 10 ml Documented by: Thiamine HCl (Vitamin B1) 100 mg PO DAILY [facility] Last Admin: 09/05/20 10:06 Dose: 100 mg Documented by: Vitamin D (Vitamin D3) 1,000 unit PO DAILY [facility] Last Admin: 09/05/20 10:06 Dose: 1,000 unit Documented by: A/P Narrative A/P Narrative: A: *COVID Pneumonia -cxr moderate patchy b/l infiltrate -Sputum culture pending, MRSA screen negative *Acute hypoxic respiratory failure: -required Bipap, now on 2L NC *Transaminitis: 2.2 above *DM type 2: A1c 9.4 P: -wean O2 as able -IS/Acapella, prn nebs -self pronging as able -Continue dexamethasone 6 mg p.o. daily, remdesivir 5-day course, -cont Rocephin/Azithro -Diabetic diet, Added Lantus 10 units daily, SSI, Metformin is on hold -pt/ot -ppx: Lovenox Full code Time Spent With Patient Time: Total time spent is greater than 50% in coordination of care (as documented) at patient's floor/unit and/or counseling patient: QUALITY Stroke Symptom Onset Unknown: No VTE Deep Vein Thrombosis/Pulmonary Embolism Present on Admission: No
[2020-09-06] MEDS: cefTRIAXone 2 GM in DEXTROSE 5% IN WATER 50 ML IV SCH (08:03)
[2020-09-06] MEDS: ENOXAPARIN 60 MG/0.6 ML SYRINGE SQ SCH (08:04)
[2020-09-06] MEDS: THIAMINE 100 MG TABLET PO SCH (08:04)
[2020-09-06] MEDS: VITAMIN D3 1,000 UNIT TABLET PO SCH (08:04)
[2020-09-06] MEDS: DEXAMETHASONE 4 MG TABLET PO SCH (08:04)
--- NOTE | 2020-09-06 08:20 | XRay Report ---
CLINICAL INFORMATION: f/u covid pna COMPARISON: 09/03/2020 FINDINGS: Heart is equivocally enlarged but decreased. Mediastinum and pulmonary vessels are normal. Bilateral infiltrates have almost completely cleared with very minimal residual in the inferior bases. No effusions IMPRESSION: Near complete clearance in bilateral mid and lower lung infiltrates with very minimal bibasilar residual Interpreted and Authenticated by: Forrest Woods 09/06/20
[2020-09-06] MEDS ORDERED: INSULIN GLARGINE, HUMAN 1 UNIT/0.01 ML SQ SCH (09:00)
[2020-09-06] MEDS: REMDESIVIR 100 MG in 0.9 % SODIUM CHLORIDE 250 ML IV SCH (09:05)
[2020-09-06] MEDS: AZITHROMYCIN 500 MG in DEXTROSE 5% IN WATER 250 ML IV SCH (09:06)
[2020-09-06 10:20] LABS: Ferritin 722.3 ng/mL (13.0-150.0)
[2020-09-06] MEDS: ACETAMINOPHEN 325 MG TABLET PO PRN (20:54)
[2020-09-07] MEDS: INSULIN LISPRO 1 UNIT/0.01 ML UNIT SQ SCH ×6 (04:13→21:59)
[2020-09-07] MEDS: 0.9 % SODIUM CHLORIDE 10 ML SYRINGE IV SCH ×4 (05:15→21:58)
[2020-09-07 06:39] LABS: Basophils # (Auto) 0.02 K/mcL (0.00-0.20); Basophils % (Auto) 0.2 % (0.0-2.0); Eosinophils # (Auto) 0.03 K/mcL (0.00-0.70); Eosinophils % (Auto) 0.3 % (0.0-7.0); Hematocrit 38.8 % (36.0-48.0); Hemoglobin 12.6 g/dL (12.0-15.0); Lymphocytes # (Auto) 2.48 K/mcL (1.50-4.80); Lymphocytes % (Auto) 21.6 % (15.0-49.0); Mean Cell Volume 86.4 fL (80.0-100.0); Mean Corpuscular HGB Conc 32.5 g/dL (31.0-36.0); Mean Platelet Volume 9.4 fL (7.4-10.4); Monocytes # (Auto) 0.93 K/mcL (0.10-0.90); Monocytes % (Auto) 8.1 % (1.0-12.0); Neutrophils % (Auto) 69.8 % (38.0-78.0); Platelet Count 550 K/mcL (140-440); RBC 4.49 M/mcL (4.00-5.20); Red Cell Distribution Width 13.3 % (11.5-14.5); WBC 11.5 K/mcL (4.5-11.0)
[2020-09-07 07:17] LABS: ALT/SGPT 30 U/L (<40); AST/SGOT 19 U/L (<32); Albumin 2.9 gm/dL (3.2-5.2); Albumin/Globulin Ratio 0.8 (1.0-2.3); Alkaline Phosphatase 85 U/L (39-117); Bilirubin,Direct < 0.2 mg/dL (<0.3); Bilirubin,Total 0.3 mg/dL (0.1-1.0); Blood Urea Nitrogen 20 mg/dL (6-20); Carbon Dioxide 26 mmol/L (22-30); Chloride 99 mmol/L (96-108); Globulin 3.6 gm/dL (2.2-3.7); Glomerular Filtration Rate 102; Glucose 237 mg/dL (70-105); Lactate Dehydrogenase 226 U/L (135-225); Phosphorous 3.7 mg/dL (2.5-4.5); Triglycerides 111 mg/dL (<150)
--- NOTE | 2020-09-07 07:38 | Internal Med Progress Note ---
SUBJECTIVE Subjective Patient information: Note initiated : 09/07/20 at 7:35 am Service Date, if different from initiated Date: [] Patient: Kristi Monroy a 54 y/o F admitted on 09/03/20 for SOB, cough, weakness. Chief Complaint: [] Interval history: Ms. Monroy is a 54 year old F with a past medical history of diabetes who presented to ER due to shortness of breath. As per patient, she has been feeling sick since Halloween. She had a positive COVID-19 test about 9 days ago. She has been having cough with small amount of sputum and shortness of breath for more than 1 week. She also complains of chest tightness. Otherwise she is fine. Denies headache, dizziness, abdominal pain, nausea, vomiting, or dysuria. In the ER, she was found to have oxygen desaturation 80+. Chest x-ray showed bilateral pneumonia compatible with COVID-19 pneumonia. 09/04 Patient feels fine even though she needs more oxygen. She is now on BiPAP. ABG showed 7.49/37/66/94.3 Instructed RN to close monitor her and pain attention to SpO2 and if he is using accessary muscles. Her blood sugar is high. I Lantus to 10 units daily. 09/05 Pt complains of mild headache. Denies n/v/d. She has been on BIPAP since yesterday. Good oxygen saturation with BIPAP WBC 14.9, d-dimer 1.48 No overnight event. 09/06 Doing much better today. On 2 L of oxygen with good oxygenation. Patient feels shortness of breath is significantly improved. Has occasional cough. Le ukocytosis improving. CRP improved 09/07 Doing better today. Denies any shortness of breath at rest. Loose stools but no diarrhea. No cough. Review of Systems: denies headache/fever/chills/nausea/vomiting/chest or abdominal pain. Otherwise see above. Constitutional Vitals: Vital Signs Temp Pulse Resp BP Pulse Ox 98.1 F 59 L 16 110/78 93 09/07/20 04:01 09/06/20 23:17 09/07/20 04:01 09/07/20 04:01 09/07/20 04:01 Period Temp Pulse Resp BP Sys/Taylor Pulse Ox Last 24 Hr 97.2 F-98.1 F 59 15-26 94-123/55-81 91-98 Intake and Output 09/06/20 09/07/20 09/07/20 21:59 05:59 13:59 Intake Total 120 240 Output Total 1425 475 Balance -1305 -235 Weight 100.289 kg Intake & Output: Intake & Output 09/06/20 09/07/20 09/07/20 21:59 05:59 13:59 Intake Total 120 240 Output Total 1425 475 Balance -1305 -235 Weight 100.289 kg Intake: Oral 120 240 Output: Void Amount 1425 475 Other: Meal Dinner Percent of Meal Consumed 100% Urine Appearance Clear Clear Urine Color Bright Yellow Bright Yellow Urine Odor Normal Normal Exam: General: Alert, Awake, No acute Distress Eyes/N/T: EOMI, Head/Neck: neck supple, CV: RRR, No murmurs, Pulm: b/l rhonch/ralesi mild, no wheezing Abd: soft, nontender, +BS x4 Ext: no clubbing/cyanosis, 1+ b/l LE edema Neuro: Alert, no focal deficits, moves all extremities, Skin: warm/dry OBJ DATA Labs CBC & Chem 7: 09/07/20 05:03 09/07/20 05:03 Labs: Abnormal Lab Results 09/07/20 09/07/20 09/06/20 05:03 05:03 05:11 WBC 11.5 H Hgb Plt Count 550 H Porter # (Auto) 0.93 H Absolute Neutrophils 8.03 H Anion Gap Glucose 237 H Ferritin 722.3 H GGT 42 H ALT Lactate Dehydrogenase 226 H C-Reactive Protein Albumin 2.9 L Globulin Albumin/Globulin Ratio 0.8 L 09/06/20 09/06/20 09/06/20 05:11 05:11 05:11 WBC 12.0 H Hgb Plt Count 592 H Porter # (Auto) Absolute Neutrophils 8.36 H Anion Gap Glucose 223 H Ferritin GGT 47 H ALT Lactate Dehydrogenase 276 H C-Reactive Protein 3.20 H Albumin 3.1 L Globulin Albumin/Globulin Ratio 0.8 L 09/05/20 09/05/20 09/04/20 04:59 04:59 05:00 WBC 14.9 H Hgb 11.9 L Plt Count 530 H Porter # (Auto) 1.02 H Absolute Neutrophils 11.37 H Anion Gap 7.0 L Glucose 201 H 264 H Ferritin GGT ALT 42 H Lactate Dehydrogenase C-Reactive Protein Albumin 2.6 L 2.9 L Globulin 3.8 H 4.1 H Albumin/Globulin Ratio 0.7 L 0.7 L Meds: Medications Acetaminophen (Tylenol) 650 mg PO Q8HP PRN; Protocol PRN Reason: Per Pain Protocol/Fever > 101 Last Admin: 09/06/20 20:54 Dose: 650 mg Documented by: Albuterol Sulfate (Ventolin) 2 puff INH Q4-6HP PRN PRN Reason: Wheezing Dexamethasone (Decadron) 6 mg PO DAILY [facility] Last Admin: 09/06/20 08:04 Dose: 6 mg Documented by: Dextrose (Dextrose 50%) 0 ml IV UD PRN PRN Reason: Hypoglycemia Diagnostic Test (Pha) (Accu-Chek) 1 each FS Q4 [facility] Last Admin: 09/07/20 04:05 Dose: 1 each Documented by: Enoxaparin Sodium (Lovenox) 60 mg SQ DAILY [facility] Last Admin: 09/06/20 08:04 Dose: 60 mg Documented by: Glucose (Insta-Glucose) 15 gm PO PRN PRN PRN Reason: Hypoglycemia REMDESIVIR 100 mg/ Sodium (Chloride) 250 mls @ 500 mls/hr IV DAILY [facility] Stop: 09/07/20 09:29 Last Infusion: 09/06/20 09:35 Dose: Infused Documented by: Ceftriaxone Sodium 2 gm/ (Dextrose) 50 mls @ 100 mls/hr IV DAILY [facility]; Protocol Last Infusion: 09/06/20 08:33 Dose: Infused Documented by: Insulin Glargine (Lantus) 15 unit SQ DAILY [facility] Last Admin: 09/06/20 08:05 Dose: 15 units Documented by: Insulin Human Lispro (Humalog) 0 unit SQ Q4 [facility]; Protocol Last Admin: 09/07/20 04:13 Dose: 6 units Documented by: Ondansetron HCl (Zofran) 4 mg IV Q4HP PRN; Protocol PRN Reason: Nausea And Vomiting Sodium Chloride (Saline Flush) 10 ml IV Q8 [facility] Last Admin: 09/07/20 05:15 Dose: 10 ml Documented by: Thiamine HCl (Vitamin B1) 100 mg PO DAILY [facility] Last Admin: 09/06/20 08:04 Dose: 100 mg Documented by: Vitamin D (Vitamin D3) 1,000 unit PO DAILY [facility] Last Admin: 09/06/20 08:04 Dose: 1,000 unit Documented by: A/P Narrative A/P Narrative: A: *COVID Pneumonia: -cxr moderate patchy b/l infiltrate improved on f/u -Sputum culture pending, MRSA screen negative *Acute hypoxic respiratory failure: -required Bipap first night, now on 1L NC *Transaminitis: 2.2 above *DM type 2: A1c 9.4 P: -wean O2 as able -IS/Acapella, prn nebs -self pronging as able -Continue dexamethasone 6 mg p.o. daily, remdesivir 5-day course, -cont Rocephin/Azithro -Diabetic diet, Added Lantus units daily, SSI, Metformin is on hold -pt/ot -ppx: Lovenox Full code Time Spent With Patient Time: Total time spent is greater than 50% in coordination of care (as documented) at patient's floor/unit and/or counseling patient: QUALITY Stroke Symptom Onset Unknown: No VTE Deep Vein Thrombosis/Pulmonary Embolism Present on Admission: No
[2020-09-07] MEDS ORDERED: INSULIN GLARGINE, HUMAN 1 UNIT/0.01 ML SQ SCH (09:00)
[2020-09-07] MEDS ORDERED: FUROSEMIDE 20 MG/2 ML VIAL IV ONE ×2 (09:20→11:27)
[2020-09-07] MEDS: REMDESIVIR 100 MG in 0.9 % SODIUM CHLORIDE 250 ML IV SCH (09:32)
[2020-09-07] MEDS: ENOXAPARIN 60 MG/0.6 ML SYRINGE SQ SCH (09:38)
[2020-09-07] MEDS: DEXAMETHASONE 4 MG TABLET PO SCH (09:39)
[2020-09-07] MEDS: cefTRIAXone 2 GM in DEXTROSE 5% IN WATER 50 ML IV SCH (09:39)
[2020-09-07] MEDS: VITAMIN D3 1,000 UNIT TABLET PO SCH (09:39)
[2020-09-07] MEDS: THIAMINE 100 MG TABLET PO SCH (09:39)
[2020-09-07] MEDS ORDERED: ACETAMINOPHEN 325 MG TABLET PO PRN (11:27)
[2020-09-07] MEDS ORDERED: DEXTROSE 50% 50 ML VIAL IV PRN (11:27)
[2020-09-07] MEDS ORDERED: ALBUTEROL SULFATE 200 PUFF INHALER INH PRN (11:27)
[2020-09-07] MEDS ORDERED: DEXTROSE 31 GM ORAL.SUSP PO PRN (11:27)
[2020-09-07] MEDS ORDERED: ONDANSETRON 4 MG/2 ML VIAL IV PRN (11:27)
--- NOTE | 2020-09-07 15:11 | Discharge Summary ---
Discharge Provider Provider Patient information: Note initiated : 09/07/20 at 3:10 pm Service Date, if different from initiated Date: [] Patient: Kristi Monroy 54 y/o F admitted on 09/03/20 for SOB, cough, weakness. Chief Complaint: [] Date of admission: 09/03/20 21:05 Discharge date: 09/08/20 Primary care physician: Joan Gallegos Consults: 09/03/20 Consult to Physician [CONS] Stat Comment: Consulting Provider: Daniel Diana Reason For Exam: Physician to Consult Discharge Meds Discharge Medications Home Medications albuterol sulfate [Ventolin HFA] 2 puff INH Q4-6HP PRN #1 inhaler 11/16/16 [Rx Confirmed 09/03/20 Last Taken Unknown] estradiol [Minivelle] 1 ea TD .TWICE A WEEK 11/16/16 [History Confirmed 09/03/20 Last Taken Unknown] metformin 1,000 mg PO DAILY 09/03/20 [History Confirmed 09/03/20 Last Taken Unknown] COURSE Hospital Course Hospital course: Ms. Monroy is a 54 year old F with a past medical history of diabetes who presented to ER due to shortness of breath. As per patient, she has been feeling sick since . She had a positive COVID-19 test about 9 days ago. She has been having cough with small amount of sputum and shortness of breath for more than 1 week. She also complains of chest tightness. Otherwise she is fine. Denies headache, dizziness, abdominal pain, nausea, vomiting, or dysuria. In the ER, she was found to have oxygen desaturation 80+. Chest x-ray showed bilateral pneumonia compatible with COVID-19 pneumonia. 09/04 Patient feels fine even though she needs more oxygen. She is now on BiPAP. ABG showed 7.49/37/66/94.3 Instructed RN to close monitor her and pain attention to SpO2 and if he is using accessary muscles. Her blood sugar is high. I Lantus to 10 units daily. 09/05 Pt complains of mild headache. Denies n/v/d. She has been on BIPAP since yesterday. Good oxygen saturation with BIPAP WBC 14.9, d-dimer 1.48 No overnight event. 09/06 Doing much better today. On 2 L of oxygen with good oxygenation. Patient feels shortness of breath is significantly improved. Has occasional cough. Leukocytosis improving. CRP improved 09/07 Doing better today. Denies any shortness of breath at rest. Loose stools but no diarrhea. No cough. 09/08 Patient continues to feel much better. She is on room air satting well. Sitting up eating breakfast. Stable for discharge. A: *COVID Pneumonia: -cxr moderate patchy b/l infiltrate improved on f/u -Sputum culture pending, MRSA screen negative *Acute hypoxic respiratory failure: -required Bipap first night, now on 1L NC *Transaminitis: 2.2 above *DM type 2: A1c 9.4 Discharge diagnosis: Covid pneumonia acute hypoxic respite failure transaminitis diabetes Time spent discussing smoking cessation with patient: more than 10 minutes Time Spent with Patient Time attestation: Total time spent providing and/or coordinating discharge services: EXAM Constitutional Vitals: Temp Pulse Resp BP Pulse Ox 98.2 F 59 L 15 92/60 95 09/07/20 11:40 09/06/20 23:17 09/07/20 10:14 09/07/20 10:14 09/07/20 11:40 Discharge Data Data Completed and Pending Labs on day of discharge: Labs from last 24 hours 09/07/20 09/07/20 05:03 05:03 WBC 11.5 H RBC 4.49 Hgb 12.6 Hct 38.8 MCV 86.4 MCH 28.1 MCHC 32.5 RDW 13.3 Plt Count 550 H MPV 9.4 Neut % (Auto) 69.8 Lymph % (Auto) 21.6 [place] % (Auto) 8.1 Eos % (Auto) 0.3 Baso % (Auto) 0.2 Lymph # (Auto) 2.48 [place] # (Auto) 0.93 H Eos # (Auto) 0.03 Baso # (Auto) 0.02 Absolute Neutrophils 8.03 H Sodium 134 Potassium 4.4 Chloride 99 Carbon Dioxide 26 Anion Gap 9.0 BUN 20 Creatinine 0.6 GFR Calculation 102 Glucose 237 H Uric Acid 3.0 Calcium 9.0 Phosphorus 3.7 Magnesium 2.5 Total Bilirubin 0.3 Direct Bilirubin < 0.2 GGT 42 H AST 19 ALT 30 Alkaline Phosphatase 85 Lactate Dehydrogenase 226 H Total Protein 6.5 Albumin 2.9 L Globulin 3.6 Albumin/Globulin Ratio 0.8 L Triglycerides 111 Preliminary micro results at discharge 09/03/20 21:30 Blood Culture - Preliminary Blood 09/03/20 21:20 Blood Culture - Preliminary Blood Discharge Plan Patient/Caregiver Discharge Instructions Activity: increase activity as tolerated Diet: Consistent Carbohydrate Prescriptions: Continued estradiol [Minivelle] 1 EACH patch semiweekly 1 ea TD .TWICE A WEEK RF: 0 albuterol sulfate [Ventolin HFA] 1 PUFF HFA aerosol inhaler 2 puff INH Q4-6HP PRN (Reason: Wheezing) Qty: 1 RF: 0 metformin 500 mg tablet extended release 24 hr 1,000 mg PO DAILY RF: 0 Follow Up Plan Follow up with: Joan Gallegos ARNP [Primary Care Provider] - Patient Disposition: Home, Self-Care Prognosis: Fair Overall status at discharge: patient is progressing back to baseline Discharge Orders: Discharge Order (Routine); Ordered 09/08/20 Ordered By: Naresh Webb [facility] VTE Deep Vein Thrombosis/Pulmonary Embolism Present on Admission: No
[2020-09-08] MEDS: INSULIN LISPRO 1 UNIT/0.01 ML UNIT SQ SCH ×3 (00:50→07:26)
[2020-09-08] MEDS: 0.9 % SODIUM CHLORIDE 10 ML SYRINGE IV SCH (04:12)
[2020-09-08 08:19] LABS: Ferritin 793.6 ng/mL (13.0-150.0)
[2020-09-08 08:20] LABS: Blood Urea Nitrogen 22 mg/dL (6-20); Calcium 9.2 mg/dL (8.6-10.4); Carbon Dioxide 25 mmol/L (22-30); Chloride 99 mmol/L (96-108); Glomerular Filtration Rate 97; Glucose 170 mg/dL (70-105)
[2020-09-08] MEDS: ENOXAPARIN 60 MG/0.6 ML SYRINGE SQ SCH ×2 (08:51→08:55)
[2020-09-08] MEDS ORDERED: THIAMINE 100 MG TABLET PO SCH (09:00)
[2020-09-08] MEDS ORDERED: DEXAMETHASONE 4 MG TABLET PO SCH (09:00)
[2020-09-08] MEDS ORDERED: INSULIN GLARGINE, HUMAN 1 UNIT/0.01 ML SQ SCH (09:00)
[2020-09-08] MEDS ORDERED: VITAMIN D3 1,000 UNIT TABLET PO SCH (09:00)
[2020-09-08] MEDS ORDERED: cefTRIAXone 2 GM in DEXTROSE 5% IN WATER 50 ML IV SCH (09:00)
== END 2020-09-08 11:50 | disposition home or self-care (01) | DRG 177 ==
LOC: ED 12:33 → ICU 21:05 → MEDSUR 09-07 15:06
PROVIDERS: ADMIT Internal Medicine; ATTEND Internal Medicine

== ENCOUNTER 2022-05-14 16:23 | Inpatient (IN) ==
[2022-05-14] MEDS ORDERED: IOPAMIDOL 100 ML BOTTLE IV ONE (16:24)
[2022-05-14] MEDS ORDERED: ONDANSETRON 4 MG/2 ML VIAL IV ONE ×2 (17:04→18:41)
[2022-05-14] MEDS ORDERED: 0.9 % SODIUM CHLORIDE 1,000 ML IV ONE (17:04)
[2022-05-14 17:16] LABS: POC Calcium, Ionized 1.11 (1.16-1.32); POC Creatinine 0.5 (0.6-1.2); POC Potassium 3.8 (3.3-5.1)
--- NOTE | 2022-05-14 17:44 | Emergency Department Note ---
Abdominal Pain HPI General Chief Complaint: Abdominal Pain Stated Complaint: cold/flu symptoms Time Seen by Provider: 05/14/22 17:03 Source: patient Mode of arrival: ambulatory Limitations: no limitations History of Present Illness HPI Narrative: Narrative: Patient presents ED with complaints of abdominal pain x1 day. She rates her pain 9/10. Her pain is located in left upper quadrant described as sharp and radiates across her upper abdomen. She reports associated nausea and vomiting and inability to keep any food or liquid down. She states that she has been having abdominal pain off and on for several years. She states that she has had several imaging tests and specialist appointments with no identifiable etiology. Patient denies fever, chills, diarrhea, constipation, dysuria, hematuria, urinary frequency, melena, hematochezia, hematemesis, cardiac chest pain, heart palpitations, shortness of breath. She states that she took one of her hydrocodone's that she uses for back pain yesterday with no release of the abdominal pain. She has not taken any pain medication since that time. She denies any [id number] medication. She denies any other alleviating or aggravating factors. Related Data Home Medications Medication Instructions Recorded Confirmed estradiol 0.1 mg/24 hr semiweekly 1 ea TD .TWICE A WEEK 11/16/16 09/03/20 transdermal patch (Minivelle) metformin 500 mg tablet,extended 1,000 mg PO DAILY 09/03/20 09/03/20 release 24 hr Previous Rx's Medication Instructions Recorded albuterol sulfate 90 mcg/actuation 2 puff INH Q4-6HP PRN Wheezing ##1 11/16/16 aerosol inhaler (Ventolin HFA) Allergies Allergy/AdvReac Type Severity Reaction Status Date / Time doxycycline Allergy Intermediate Hives Verified 09/06/20 07:39 morphine AdvReac Mild Confusion Verified 09/06/20 07:39 Review of Systems ROS ROS Narrative: Narrative: All systems ED: reviewed and negative except as stated. [facility] Narrative Patient History Narrative: Narrative: Medical/Surgical/Family History All Active Problems (Updated 05/14/22 @ 20:58 by Caleb Hull DO) Abdominal pain (Acute) Partial small bowel obstruction (Acute) Abdominal pain (Acute) Nausea & vomiting (Acute) Diabetes mellitus type 2, controlled, without complications (Acute) Influenza A (Acute) Gastritis (Acute) Pneumonia due to 2019 novel coronavirus (Acute) Medical History (Updated 05/14/22 @ 20:58 by Caleb Hull DO) Influenza A Surgical History H/O: hysterectomy History of History of tonsillectomy Social History Smoking Status: Never smoker Exam Narrative Narrative: Narrative: General Limitations: no limitations General appearance: Present alert ENT ENT: Present normal oropharynx and mucous membranes moist Respiratory Respiratory: Present normal lung sounds bilaterally; Absent respiratory distress Cardiovascular Cardiovascular: Present regular rate and normal rhythm Adbominal Abdominal: Present soft, tenderness (Left upper quadrant, right upper quadrant) and normal bowel sounds; Absent guarding Back Back: Absent CVA tenderness (R) or CVA tenderness (L) Neurological Neurological: Present oriented X3 and normal gait Psychiatric Psychiatric: Present normal affect and normal mood Skin Skin: Present warm (WNL), intact and normal color Course Course Course Narrative: Patient was evaluated for abdominal pain along with nausea vomiting. She given IV fluids Zofran and analgesics. Labs were obtained that showed that she had a slightly elevated white cell count. She was afebrile. CT abdomen pelvis obtained with image reviewed myself which revealed a partial small bowel obstruction. NG tube was placed and patient is made n.p.o. Case was discussed with on-call surgeon, Dr. Gonzalez, who has agreed to admit the patient. Plan discussed with patient she is in agreement with plan Consultations Consultation #1: Case discussed with on-call surgeon, Dr. Gonzalez, who is graciously excepted patient as admission to the hospital Time: 20:50 Vital Signs Vital signs: Vital Signs Temperature 98.7 F 05/14/22 16:51 Pulse Rate 94 H 05/14/22 16:51 Respiratory Rate 20 05/14/22 16:51 Blood Pressure 124/76 05/14/22 16:51 Pulse Oximetry (%) 96 05/14/22 16:51 Oxygen Delivery Method 05/14/22 16:51 Temperature 98.7 F 05/14/22 16:51 Pulse Rate 91 H 05/14/22 22:33 Respiratory Rate 20 05/14/22 16:51 Blood Pressure 122/89 05/14/22 21:01 Pulse Oximetry (%) 97 05/14/22 22:52 Oxygen Delivery Method 05/14/22 22:54 Oxygen Flow Rate (L/min) 2 05/14/22 22:54 [facility] MDM Narrative Medical decision making narrative: Narrative: Differential Diagnosis Differential Diagnosis: Pancreatitis, viral illness, gastroenteritis, small bowel obstruction Medical Records Medical records reviewed: Yes I reviewed the patient's medical records. Lab Data Lab results reviewed: Yes I reviewed the patient's lab results. Result diagrams: 05/14/22 17:01 05/14/22 17:01 Labs: Lab Results 05/14/22 05/14/22 05/14/22 Range/Units 17:01 17:01 17:13 WBC 11.3 H (4.5-11.0) K/mcL RBC 5.48 H (3.59-5.38) M/mcL Hgb 15.6 (11.2-15.7) g/dL Hct 45.5 H (34.1-44.9) % POC Hct 48.0 (36-48) MCV 83.0 (80.0-100.0) fL MCH 28.5 (26.0-34.0) pg MCHC 34.3 (31.0-36.0) g/dL RDW 12.6 (11.5-14.5) % Plt Count 344 (140-440) K/mcL MPV 10.0 (7.4-10.4) fL Immature Gran % (Auto) 0.4 (0.0-0.5) % Neut % (Auto) 62.7 (38.0-78.0) % Lymph % (Auto) 25.5 (15.5-49.0) % [place] % (Auto) 10.6 (1.0-12.0) % Eos % (Auto) 0.6 (0.0-7.0) % Baso % (Auto) 0.2 (0.0-2.0) % Lymph # (Auto) 2.88 (1.50-4.80) K/mcL [place] # (Auto) 1.20 H (0.10-0.90) K/mcL Eos # (Auto) 0.07 (0.00-0.70) K/mcL Baso # (Auto) 0.02 (0.00-0.30) K/mcL Immature Gran # 0.04 (0.00-0.05) K/mcl Absolute Neutrophils 7.14 (1.80-8.00) K/mcL POC VBG pH (7.32-7.42) POC VBG pCO2 at Temp (41-51) POC VBG pO2 (25-40) POC VBG HCO3 (24-28) POC VBG Total CO2 (25-29) POC Venous O2 Sat (40-70) POC VBG Base Excess (-2-2) VBG Lactic Acid (0.5-2) POC Sodium 136 (133-145) Sodium 132 L (133-145) mmol/L POC Potassium 3.8 (3.3-5.1) Potassium 4.0 (3.3-5.1) mmol/L POC Chloride 100 (96-108) Chloride 95 L (96-108) mmol/L Carbon Dioxide 22 (22-30) mmol/L POC Total CO2 23.0 (22-30) Anion Gap 15.0 (8.0-16.0) POC BUN 15 (6-20) BUN 11 (6-20) mg/dL Creatinine 0.7 (0.6-1.1) mg/dL POC Creatinine 0.5 L (0.6-1.2) GFR Calculation 96 Glucose 233 H (70-105) mg/dL POC Glucose 243 H (70-105) Calcium 9.7 (8.6-10.4) mg/dL POC WB Ioniz Calcium 1.11 L (1.16-1.32) Total Bilirubin 0.8 (0.1-1.0) mg/dL AST 17 (<32) U/L ALT 22 (<40) U/L Alkaline Phosphatase 166 H (39-117) U/L Total Protein 7.6 (5.9-8.4) gm/dL Albumin 4.3 (3.2-5.2) gm/dL Globulin 3.3 (2.2-3.7) gm/dL Albumin/Globulin Ratio 1.3 (1.0-2.3) Urine Color Urine Appearance (Clear) Urine pH (5.0-9.0) Ur Specific [place] (1.000-1.035) Urine Protein (Negative) mg/dL Urine Glucose (UA) (Negative) mg/dL Urine Ketones (Negative) mg/dL Urine Occult Blood (Negative) giselle/mcL Urine Nitrate (Negative) Urine Bilirubin (Negative) mg/dL Urine Urobilinogen mg/dL Ur Leukocyte Esterase (Negative) /uL Urine RBC (0-3) /hpf Urine WBC (0-4) /hpf Ur Squamous Epith Cells (0-4) /hpf Urine Bacteria (0) /hpf Urine Mucus (None) /hpf Ur Culture Indicated? 05/14/22 05/14/22 Range/Units 18:41 21:07 WBC (4.5-11.0) K/mcL RBC (3.59-5.38) M/mcL Hgb (11.2-15.7) g/dL Hct (34.1-44.9) % POC Hct (36-48) MCV (80.0-100.0) fL MCH (26.0-34.0) pg MCHC (31.0-36.0) g/dL RDW (11.5-14.5) % Plt Count (140-440) K/mcL MPV (7.4-10.4) fL Immature Gran % (Auto) (0.0-0.5) % Neut % (Auto) (38.0-78.0) % Lymph % (Auto) (15.5-49.0) % [place] % (Auto) (1.0-12.0) % Eos % (Auto) (0.0-7.0) % Baso % (Auto) (0.0-2.0) % Lymph # (Auto) (1.50-4.80) K/mcL [place] # (Auto) (0.10-0.90) K/mcL Eos # (Auto) (0.00-0.70) K/mcL Baso # (Auto) (0.00-0.30) K/mcL Immature Gran # (0.00-0.05) K/mcl Absolute Neutrophils (1.80-8.00) K/mcL POC VBG pH 7.47 H (7.32-7.42) POC VBG pCO2 at Temp 32.3 L (41-51) POC VBG pO2 40 (25-40) POC VBG HCO3 23.6 L (24-28) POC VBG Total CO2 25.0 (25-29) POC Venous O2 Sat 80.0 H (40-70) POC VBG Base Excess 0 (-2-2) VBG Lactic Acid 1.2 (0.5-2) POC Sodium (133-145) Sodium (133-145) mmol/L POC Potassium (3.3-5.1) Potassium (3.3-5.1) mmol/L POC Chloride (96-108) Chloride (96-108) mmol/L Carbon Dioxide (22-30) mmol/L POC Total CO2 (22-30) Anion Gap (8.0-16.0) POC BUN (6-20) BUN (6-20) mg/dL Creatinine (0.6-1.1) mg/dL POC Creatinine (0.6-1.2) GFR Calculation Glucose (70-105) mg/dL POC Glucose (70-105) Calcium (8.6-10.4) mg/dL POC WB Ioniz Calcium (1.16-1.32) Total Bilirubin (0.1-1.0) mg/dL AST (<32) U/L ALT (<40) U/L Alkaline Phosphatase (39-117) U/L Total Protein (5.9-8.4) gm/dL Albumin (3.2-5.2) gm/dL Globulin (2.2-3.7) gm/dL Albumin/Globulin Ratio (1.0-2.3) Urine Color Yellow Urine Appearance Clear (Clear) Urine pH 7.0 (5.0-9.0) Ur Specific [place] 1.015 (1.000-1.035) Urine Protein 30 mg/dl A (Negative) mg/dL Urine Glucose (UA) 100 mg/dl A (Negative) mg/dL Urine Ketones >=160 mg/dl A (Negative) mg/dL Urine Occult Blood Trace-intact A (Negative) giselle/mcL Urine Nitrate Negative (Negative) Urine Bilirubin Negative (Negative) mg/dL Urine Urobilinogen 2.0 e.u./dl A mg/dL Ur Leukocyte Esterase Small A (Negative) /uL Urine RBC 2 (0-3) /hpf Urine WBC 27 H (0-4) /hpf Ur Squamous Epith Cells 10 H (0-4) /hpf Urine Bacteria None (0) /hpf Urine Mucus Mod A (None) /hpf Ur Culture Indicated? No ED POC Tests ED POC Tests: MARLEN - Influenza A Negative MARLEN - Influenza B Negative MARLEN - SARS Antigen Negative Radiology Data Radiology results reviewed: Yes I reviewed the patient's radiology results. Radiology results narrative: CT abdomen pelvis obtained with image reviewed myself, agree with radiologist interpretation Core Measures AMI Core Measures Followed: Yes Discharge Plan Patient/Caregiver Discharge Instructions Pt seen by [employer] OFFICER/PA only: No Clinical Impression: Partial small bowel obstruction Abdominal pain Qualifiers: Abdominal location: left upper quadrant Qualified Code(s): R10.12 - Left upper quadrant pain Nausea & vomiting Qualifiers: Vomiting type: unspecified Qualified Code(s): R11.2 - Nausea with vomiting, unspecified Patient Disposition: Xfer As Inpt ([facility]) Condition: Fair Follow up with: Joan Gallegos ARNP [Primary Care Provider] - Prescriptions: No Action estradiol [Minivelle] 1 EACH patch semiweekly 1 ea TD .TWICE A WEEK albuterol sulfate [Ventolin HFA] 1 PUFF HFA aerosol inhaler 2 puff INH Q4-6HP PRN (Reason: Wheezing) Qty: 1 0RF metformin 500 mg tablet extended release 24 hr 1,000 mg PO DAILY
[2022-05-14 17:45] LABS: Basophils # (Auto) 0.02 K/mcL (0.00-0.30); Basophils % (Auto) 0.2 % (0.0-2.0); Eosinophils # (Auto) 0.07 K/mcL (0.00-0.70); Eosinophils % (Auto) 0.6 % (0.0-7.0); Hematocrit 45.5 % (34.1-44.9); Hemoglobin 15.6 g/dL (11.2-15.7); Lymphocytes # (Auto) 2.88 K/mcL (1.50-4.80); Lymphocytes % (Auto) 25.5 % (15.5-49.0); Mean Corpuscular HGB Conc 34.3 g/dL (31.0-36.0); Monocytes % (Auto) 10.6 % (1.0-12.0); Neutrophils % (Auto) 62.7 % (38.0-78.0); Platelet Count 344 K/mcL (140-440); RBC 5.48 M/mcL (3.59-5.38); Red Cell Distribution Width 12.6 % (11.5-14.5); WBC 11.3 K/mcL (4.5-11.0)
[2022-05-14] MEDS ORDERED: fentaNYL 100 MCG/2 ML VIAL IV ONE (17:51)
[2022-05-14 18:08] LABS: ALT/SGPT 22 U/L (<40); AST/SGOT 17 U/L (<32); Albumin 4.3 gm/dL (3.2-5.2); Albumin/Globulin Ratio 1.3 (1.0-2.3); Alkaline Phosphatase 166 U/L (39-117); Bilirubin,Total 0.8 mg/dL (0.1-1.0); Blood Urea Nitrogen 11 mg/dL (6-20); Calcium 9.7 mg/dL (8.6-10.4); Carbon Dioxide 22 mmol/L (22-30); Chloride 95 mmol/L (96-108); Globulin 3.3 gm/dL (2.2-3.7); Glomerular Filtration Rate 96; Glucose 233 mg/dL (70-105)
[2022-05-14] MEDS ORDERED: morphine 2 MG/ML VIAL IV ONE (18:51)
[2022-05-14 19:47] LABS: Appearance,Urine Clear (Clear); Bilirubin,Urine Negative (Negative); Color,Urine Yellow; Culture Indicated,Urine No; Ketones,Urine >=160 mg/dL mg/dL (Negative); Leukocyte Esterase,Urine Small /uL (Negative); Mucus,Urine MOD /hpf; Nitrate,Urine Negative (Negative); Specific Gravity,Urine 1.015 (1.000-1.035); Urine Blood Trace-intact ery/mcL (Negative); Urine RBC 2 /hpf (0-3); Urine Squamous Epithelial Cell 10 /hpf (0-4); Urine WBC 27 /hpf (0-4); Urobilinogen,Urine 2.0 E.U./dL mg/dL
--- NOTE | 2022-05-14 20:03 | Cat Scan Report ---
CLINICAL INFORMATION: Left upper quadrant pain COMPARISON: 10/26/[address] TECHNIQUE: Following enteric contrast, 80 cc of Isovue-370 were injected intravenously, and 60 seconds later, 0.625 mm helical slices were obtained from the mid heart through the subtrochanteric regions. Following reconstruction, 2.5 mm sagittal, coronal and axial reformatted images were processed and reviewed at bone, lung and soft tissue windows. Five minutes later, 0.625 mm helical slices were obtained from the mid heart through the kidneys and viewed at soft tissue windows.The exam was performed using radiation dose optimization techniques including, but not limited to, automated exposure control, adjustment of the mA and/or kV according to patient size and use of iterative reconstruction technique. FINDINGS: The lung bases show a new small region of consolidated airspace disease in the lateral basilar segment of the left lower lobe. It is more likely atelectasis than infiltrate. Stranding atelectasis or fibrosis seen throughout the remaining lung bases.. No effusions. The visualized heart is grossly normal. Small hiatal hernia is new. Abdominal images again show mild fatty change within the liver. A 2 cm low-attenuation lesion in segment five and a 1.7 cm low-attenuation lesion in segment IVb of the left hepatic lobe are both stable. Both likely represent benign focally concentrated fat. A 6 mm calcified granuloma in the subdiaphragmatic right hepatic lobe is again noted. The gallbladder and bile ducts, both kidneys, adrenal glands, spleen, pancreas and aorta, including aortic branches, are normal in size, configuration and attenuation without focal lesion. There is no free air or adenopathy. Small amount of free fluid is noted in the deep true pelvis. Pelvic images show normal urinary bladder. Uterus and both ovaries are surgically absent. The stomach, duodenum and jejunum are moderately dilated to a transition point in the mid jejunum located in the left mid mesenteric cavity on coronal image 62 and axial image 88.. There appears to be a moderate stricture in this region. The small bowel distal to this transition point is modestly decompressed including the colon. Appendix is unremarkable Bone windows show no osseous abnormality IMPRESSION: Partial small bowel obstruction of the distal jejunum due to stricture in the left mid mesenteric cavity. Small amount of free fluid noted in the deep true pelvis. No free air to suggest perforation. Small hiatal hernia-new. Small periumbilical hernia containing only mesenteric fat-new. Two low-attenuation lesions within the liver as described-stable since the comparison study six months ago. These are most compatible with benign focally concentrated fat. No significant hepatic lesion. Interpreted and Authenticated by: Forrest Woods 05/14/22
[2022-05-14] MEDS ORDERED: cefTRIAXone 2 GM in DEXTROSE 5% IN WATER 50 ML IV ONE (20:55)
[2022-05-14] MEDS ORDERED: metroNIDAZOLE 500 MG/100 ML BAG IV ONE (20:55)
[2022-05-14] MEDS ORDERED: DEXTROSE 50% 50 ML VIAL IV PRN (22:13)
[2022-05-14] MEDS ORDERED: ALBUTEROL SULFATE 200 PUFF INHALER INH PRN (22:13)
[2022-05-14] MEDS ORDERED: DEXTROSE 31 GM ORAL.SUSP PO PRN (22:13)
--- NOTE | 2022-05-14 22:33 | General Surg History&Physical ---
HPI History of Present Illness Patient information: Note initiated : 05/14/22 at 10:16 pm Service Date, if different from initiated Date: [] Patient: Kristi Monroy a 56 y/o F admitted on for cold/flu symptoms. Chief Complaint: [Abdominal Pain] Kristi is seen in consultation tonight with a relatively abrupt onset of abdominal pain along with episodes of severe nausea and some emesis. She has been struggling with intermittent bouts of abdominal pain for some time now and feels she has one bad "episode" per year. She thinks she has had past bouts of obstruction and has improved non operatively. She has had prior C sections as well as a Hysterectomy. She denies any history of malignancy or prior bouts of radiation. Her health is generally ok although she did have a rough bout of Cov id in the past that resulted in hospitalization. She denies CAD, is not on any oral anticoagulants, has Type II diabetes and has some mild reactive airway disease. There is no history of Crohn's or Ulcerative Colitis. She is passing some gas but has not had a BM since yesterday. History of present illness: Kristi is seen in consultation tonight with a relatively abrupt onset of abdominal pain along with episodes of severe nausea and some emesis. She has been struggling with intermittent bouts of abdominal pain for some time now and feels she has one bad "episode" per year. She thinks she has had past bouts of obstruction and has improved non operatively. She has had prior C sections as well as a Hysterectomy. She denies any history of malignancy or prior bouts of radiation. Her health is generally ok although she did have a rough bout of Covid in the past that resulted in hospitalization. She denies CAD, is not on any oral anticoagulants, has Type II diabetes and has some mild reactive airway disease. There is no history of Crohn's or Ulcerative Colitis. She is passing some gas but has not had a BM since yesterday. Review of Systems All systems: reviewed and no additional remarkable complaints except as stated Constitutional Additional comments: no change EENT Additional comments: denies any recent changes Cardiovascular Cardiovascular: Present as per HPI Respiratory Respiratory: Present as per HPI Gastrointestinal Gastrointestinal: Present as per HPI Genitourinary Additional comments: no recent changes Integumentary Additional comments: no skin changes Neurological Additional comments: no recent issues Psychiatric Additional comments: no changes Endocrine Additional comments: NIDDM Hematologic/Lymphatic Hematologic/Lymphatic: Absent lymphadenopathy PFSH PFSH All Active Problems (Updated 05/14/22 @ 20:58 by Caleb Hull DO) Abdominal pain (Acute) Partial small bowel obstruction (Acute) Abdominal pain (Acute) Nausea & vomiting (Acute) Diabetes mellitus type 2, controlled, without complications (Acute) Influenza A (Acute) Gastritis (Acute) Pneumonia due to 2019 novel coronavirus (Acute) Medical History (Updated 05/14/22 @ 20:58 by Caleb Hull DO) Influenza A Surgical History H/O: hysterectomy History of History of tonsillectomy MEDS/ALLERGIES Home Medications and Allergies Home Medications Medication Instructions Recorded Confirmed Type albuterol sulfate 90 mcg/actuation 2 puff INH Q4-6HP PRN Wheezing ##1 11/16/16 09/03/20 Rx aerosol inhaler (Ventolin HFA) estradiol 0.1 mg/24 hr semiweekly 1 ea TD .TWICE A WEEK 11/16/16 09/03/20 History transdermal patch (Minivelle) metformin 500 mg tablet,extended 1,000 mg PO DAILY 09/03/20 09/03/20 History release 24 hr Allergies Allergy/AdvReac Type Severity Reaction Status Date / Time doxycycline Allergy Intermediate Hives Verified 09/06/20 07:39 morphine AdvReac Mild Confusion Verified 09/06/20 07:39 Physical Examination Vital Signs Vital signs: Temp Pulse Resp BP Pulse Ox O2 Del Method 98.7 F 90 20 122/89 100 05/14/22 16:51 05/14/22 22:06 05/14/22 16:51 05/14/22 21:01 05/14/22 22:06 05/14/22 16:51 General physical appearance General physical exam: other (appears in some crampy pain, nauseous ) Eyes Eye exam: normal ocular movement; negative icteric ENT ENT exam: other (no changes ) Head Head exam IM: Present atraumatic, normal inspection and normocephalic Neck Neck exam: trachea midline and no lymphadenopathy Cardiovascular Cardiovascular exam IM: Present RRR Respiratory Respiratory exam: normal respiratory effort Abdomen Abdomen: Present soft (obese, soft, minimally to non tender, no peritoneal findings ) Integumentary Integumentary: Present other (normal appearing intact skin ) Neurologic Neurologic: Present other (grossly intact ) Psychiatric Psychiatric: Present oriented to time, oriented to person and oriented to place Results Labs Result diagrams: 05/14/22 17:01 05/14/22 17:01 Labs: Abnormal lab results 05/14/22 05/14/22 05/14/22 Range/Units 17:01 17:01 17:13 WBC 11.3 H (4.5-11.0) K/mcL RBC 5.48 H (3.59-5.38) M/mcL Hct 45.5 H (34.1-44.9) % Bucks # (Auto) 1.20 H (0.10-0.90) K/mcL POC VBG pH (7.32-7.42) POC VBG pCO2 at Temp (41-51) POC VBG HCO3 (24-28) POC Venous O2 Sat (40-70) Sodium 132 L (133-145) mmol/L Chloride 95 L (96-108) mmol/L POC Creatinine 0.5 L (0.6-1.2) Glucose 233 H (70-105) mg/dL POC Glucose 243 H (70-105) POC WB Ioniz Calcium 1.11 L (1.16-1.32) Alkaline Phosphatase 166 H (39-117) U/L Urine Protein (Negative) mg/dL Urine Glucose (UA) (Negative) mg/dL Urine Ketones (Negative) mg/dL Urine Occult Blood (Negative) giselle/mcL Urine Urobilinogen mg/dL Ur Leukocyte Esterase (Negative) /uL Urine WBC (0-4) /hpf Ur Squamous Epith Cells (0-4) /hpf Urine Mucus (None) /hpf 05/14/22 05/14/22 Range/Units 18:41 21:07 WBC (4.5-11.0) K/mcL RBC (3.59-5.38) M/mcL Hct (34.1-44.9) % Bucks # (Auto) (0.10-0.90) K/mcL POC VBG pH 7.47 H (7.32-7.42) POC VBG pCO2 at Temp 32.3 L (41-51) POC VBG HCO3 23.6 L (24-28) POC Venous O2 Sat 80.0 H (40-70) Sodium (133-145) mmol/L Chloride (96-108) mmol/L POC Creatinine (0.6-1.2) Glucose (70-105) mg/dL POC Glucose (70-105) POC WB Ioniz Calcium (1.16-1.32) Alkaline Phosphatase (39-117) U/L Urine Protein 30 mg/dl A (Negative) mg/dL Urine Glucose (UA) 100 mg/dl A (Negative) mg/dL Urine Ketones >=160 mg/dl A (Negative) mg/dL Urine Occult Blood Trace-intact A (Negative) giselle/mcL Urine Urobilinogen 2.0 e.u./dl A mg/dL Ur Leukocyte Esterase Small A (Negative) /uL Urine WBC 27 H (0-4) /hpf Ur Squamous Epith Cells 10 H (0-4) /hpf Urine Mucus Mod A (None) /hpf Diabetes panel 05/14/22 Range/Units 17:01 Sodium 132 L (133-145) mmol/L Potassium 4.0 (3.3-5.1) mmol/L Chloride 95 L (96-108) mmol/L Carbon Dioxide 22 (22-30) mmol/L BUN 11 (6-20) mg/dL Creatinine 0.7 (0.6-1.1) mg/dL Glucose 233 H (70-105) mg/dL Calcium 9.7 (8.6-10.4) mg/dL AST 17 (<32) U/L ALT 22 (<40) U/L Alkaline Phosphatase 166 H (39-117) U/L Total Protein 7.6 (5.9-8.4) gm/dL Albumin 4.3 (3.2-5.2) gm/dL Calcium panel 05/14/22 Range/Units 17:01 Calcium 9.7 (8.6-10.4) mg/dL Albumin 4.3 (3.2-5.2) gm/dL Pituitary panel 05/14/22 Range/Units 17:01 Sodium 132 L (133-145) mmol/L Potassium 4.0 (3.3-5.1) mmol/L Chloride 95 L (96-108) mmol/L Carbon Dioxide 22 (22-30) mmol/L BUN 11 (6-20) mg/dL Creatinine 0.7 (0.6-1.1) mg/dL Glucose 233 H (70-105) mg/dL Calcium 9.7 (8.6-10.4) mg/dL Adrenal panel 05/14/22 Range/Units 17:01 Sodium 132 L (133-145) mmol/L Potassium 4.0 (3.3-5.1) mmol/L Chloride 95 L (96-108) mmol/L Carbon Dioxide 22 (22-30) mmol/L BUN 11 (6-20) mg/dL Creatinine 0.7 (0.6-1.1) mg/dL Glucose 233 H (70-105) mg/dL Calcium 9.7 (8.6-10.4) mg/dL Total Bilirubin 0.8 (0.1-1.0) mg/dL AST 17 (<32) U/L ALT 22 (<40) U/L Alkaline Phosphatase 166 H (39-117) U/L Total Protein 7.6 (5.9-8.4) gm/dL Albumin 4.3 (3.2-5.2) gm/dL All other labs normal. A/P Narrative A/P Narrative: Small Bowel Obstruction This appears to be partial and is likely adhesion related given the location and prior pelvic surgery Nothing to suggest that she isn't a reasonable candidate for an initially non operative based approach and treatment options and rationale are discussed both with her and her . We will go ahead with NGT placement at this time along with pain control, aggressive IVFs and IV ABs as well for now Re check labs and plain films in the AM with close observational mgmt. The p ossibility that need for urgent or even emergent operative intervention could yet arise is also discussed with them at length. Time Spent With Patient Time: Total time spent is greater than 50% in coordination of care (as documented) at patient's floor/unit and/or counseling patient:
[2022-05-14] MEDS: PIPERACILLIN SODIUM/TAZOBACTAM 3.375 GM in DEXTROSE 5% IN WATER 50 ML IV SCH (23:38)
[2022-05-14] MEDS: 0.9 % SODIUM CHLORIDE 10 ML SYRINGE IV SCH (23:38)
[2022-05-14] MEDS: HYDROmorphone 1 MG/ML SYRINGE IV PRN (23:42)
[2022-05-14] MEDS: ONDANSETRON 4 MG/2 ML VIAL IV PRN (23:55)
[2022-05-15] MEDS: DEXTROSE 5%-LR 1,000 ML IV SCH ×3 (00:47→10:57)
[2022-05-15] MEDS: PIPERACILLIN SODIUM/TAZOBACTAM 3.375 GM in DEXTROSE 5% IN WATER 50 ML IV SCH ×3 (05:27→17:23)
[2022-05-15] MEDS: 0.9 % SODIUM CHLORIDE 10 ML SYRINGE IV SCH ×3 (05:42→21:23)
[2022-05-15] MEDS: HYDROmorphone 1 MG/ML SYRINGE IV PRN ×2 (05:42→23:21)
[2022-05-15] MEDS: ONDANSETRON 4 MG/2 ML VIAL IV PRN ×2 (05:48→23:21)
[2022-05-15 06:06] LABS: Hematocrit 40.3 % (34.1-44.9); Hemoglobin 13.5 g/dL (11.2-15.7); Mean Cell Volume 86.1 fL (80.0-100.0); Mean Corpuscular HGB Conc 33.5 g/dL (31.0-36.0); Mean Platelet Volume 9.9 fL (7.4-10.4); Platelet Count 268 K/mcL (140-440); RBC 4.68 M/mcL (3.59-5.38); Red Cell Distribution Width 13.1 % (11.5-14.5); WBC 8.4 K/mcL (4.5-11.0)
[2022-05-15 06:17] LABS: Blood Urea Nitrogen 14 mg/dL (6-20); Calcium 8.5 mg/dL (8.6-10.4); Carbon Dioxide 24 mmol/L (22-30); Chloride 99 mmol/L (96-108); Glomerular Filtration Rate 96; Glucose 272 mg/dL (70-105)
--- NOTE | 2022-05-15 08:11 | XRay Report ---
HISTORY: Small bowel obstruction, NG tube insertion FINDINGS: NG tube has been inserted. The tip is pointing inferiorly in the region of the proximal antrum. The stomach is incompletely decompressed. There is air in several nondilated segments of small intestine in the upper abdomen. No free intra-abdominal air is present. The lower abdomen is outside the field of view. IMPRESSION: Well-positioned nasogastric tube Interpreted and Authenticated by: Edwar Ayala 05/15/22
[2022-05-15] MEDS: INSULIN LISPRO 1 UNIT/0.01 ML UNIT SQ SCH ×4 (08:45→21:27)
--- NOTE | 2022-05-15 08:49 | XRay Report ---
HISTORY: Follow-up small bowel obstruction FINDINGS: The stomach and small intestine are now decompressed. NG tube remains in the antrum of the stomach. There is air in nondistended large bowel. The dilated small bowel seen on the CT scan performed on 05/14/22 has returned to normal. No free intra-abdominal air is present. IMPRESSION: Resolved small bowel obstruction Interpreted and Authenticated by: Edwar Ayala 05/15/22
--- NOTE | 2022-05-15 11:32 | General Surgery Progress Note ---
SUBJECTIVE Subjective Patient information: Note initiated : 05/15/22 at 11:28 am Service Date, if different from initiated Date: [] Patient: Kristi Monroy 56 y/o F admitted on 05/14/22 for cold/flu symptoms. Chief Complaint: [] Feels much improved this am with abdominal pain now largely resolved. She has an intermittent pain every once in awhile but is otherwise entirely without pain. NGT irritation and nausea is still an issue. Passing gas Constitutional Vitals: Vital Signs Temp Pulse Resp BP Pulse Ox O2 Del Method O2 Flow Rate 98.9 F 87 20 105/67 94 1 05/15/22 08:00 05/15/22 08:00 05/15/22 08:00 05/15/22 08:00 05/15/22 08:00 05/15/22 08:00 05/15/22 00:00 Period Temp Pulse Resp BP Sys/Taylor Pulse Ox O2 Del Method O2 Flow Rate Last 24 Hr 98.7 F-98.9 F 82-94 16-22 105-149/67-96 91-100 Nasal Cannula- Room Air 1-2 Intake and Output 05/14/22 05/15/22 05/15/22 21:59 05:59 13:59 Intake Total 0681 568 1390 Output Total 250 200 Balance 1000 -50 850 Weight 180 lb 218 lb 12.8 oz Intake & Output: Intake & Output 05/14/22 05/15/22 05/15/22 21:59 05:59 13:59 Intake Total 5572 373 1390 Output Total 250 200 Balance 1000 -50 850 Weight 180 lb 218 lb 12.8 oz Intake: IV 8497 136 4236 Sodium Chloride 0.9% 1,000 ml @ 1000 Wide Open IV BOLUS ONE Rx#: [id number] Dextrose 5%-Lactated Ringers 1, 1000 000 ml @ 150 mls/hr IV .Q6H40M [facility] Rx#:[id number] Zosyn 3.375 gm In Dextrose 5% 50 50 in Water 50 ml @ 100 mls/hr IV Q6H [facility] Rx#:[id number] Rocephin 2 gm In Dextrose 5% in 50 Water 50 ml @ 100 mls/hr IV ONCE ONE Rx#:[id number] Oral 0 Tube Feeding 0 Output: Gastric Drainage 200 Right Nare 200 Void Amount 250 Other: Urine Appearance Clear Urine Color Dark Yellow Urine Odor Normal Exam: Non toxic, looks much better overall Respiratory Respiratory exam: Present normal respiratory exam Additional comments: non labored Cardiovascular Cardiovascular exam: Present RRR GI/Abdominal Additional comments: soft and non tender, non distended, NGT in place A/P Assessment and plan (1) Partial small bowel obstruction: Assessment and plan: Resolving SBO much improved overall Continue NGT decompression and fluids for now Re check images in am and consider SBFT at that time Sips/ice chips/popsicles ok Status: Acute Time Spent With Patient Time: Total time spent is greater than 50% in coordination of care (as documented) at patient's floor/unit and/or counseling patient:
[2022-05-15] MEDS: DEXTROSE 5%-NS W/20MEQ KCL 1,000 ML IV SCH ×3 (11:34→23:36)
[2022-05-15] MEDS ORDERED: BENZOCAINE 1 SPRAY BOTTLE TOPICAL PRN (15:30)
[2022-05-15] MEDS ORDERED: SUCRETS LOZENGE PO PRN (15:32)
[2022-05-16] MEDS: PIPERACILLIN SODIUM/TAZOBACTAM 3.375 GM in DEXTROSE 5% IN WATER 50 ML IV SCH ×4 (00:18→17:54)
[2022-05-16 06:20] LABS: Hematocrit 40.5 % (34.1-44.9); Hemoglobin 12.7 g/dL (11.2-15.7); Mean Cell Volume 90.2 fL (80.0-100.0); Mean Corpuscular HGB Conc 31.4 g/dL (31.0-36.0); Platelet Count 231 K/mcL (140-440); RBC 4.49 M/mcL (3.59-5.38); Red Cell Distribution Width 13.2 % (11.5-14.5); WBC 7.2 K/mcL (4.5-11.0)
[2022-05-16] MEDS: 0.9 % SODIUM CHLORIDE 10 ML SYRINGE IV SCH ×3 (06:40→20:56)
[2022-05-16 06:50] LABS: Blood Urea Nitrogen 14 mg/dL (6-20); Calcium 8.6 mg/dL (8.6-10.4); Carbon Dioxide 28 mmol/L (22-30); Chloride 104 mmol/L (96-108); Glomerular Filtration Rate 96; Glucose 278 mg/dL (70-105)
[2022-05-16] MEDS: INSULIN LISPRO 1 UNIT/0.01 ML UNIT SQ SCH ×4 (07:54→21:30)
[2022-05-16] MEDS: DEXTROSE 5%-NS W/20MEQ KCL 1,000 ML IV SCH ×3 (07:58→19:21)
--- NOTE | 2022-05-16 09:41 | XRay Report ---
HISTORY: Follow-up small bowel obstruction FINDINGS: Both large and small bowel are decompressed without evidence of obstruction or ileus. No free intra-abdominal air is present. Nasogastric tube remains in the antrum of the stomach pointing inferiorly. The stomach is decompressed. Patient has developed a small streaky infiltrate in left lower lobe behind left heart border. This may be atelectasis, pneumonia or aspiration. IMPRESSION: Resolved small bowel obstruction Small left lower lobe pulmonary infiltrate Interpreted and Authenticated by: Edwar Ayala 05/16/22
[2022-05-16] MEDS ORDERED: DIATRIZOATE MEGLU/DIATRIZO SOD 120 ML BOTTLE PO ONE (12:38)
--- NOTE | 2022-05-16 13:44 | XRay Report ---
HISTORY: Small bowel obstruction FINDINGS: The print binding and finishing worker film of the abdomen shows nasogastric tube in the antrum the stomach. Small bowel is nondilated. Patient was given 500 cc of dilute Gastrografin contrast. Initial image shows the contrast quickly passing through stomach and duodenum to the mid jejunum. The duodenum and jejunum have normal mucosal pattern and are normal in caliber. Second image was acquired 60 minutes postingestion. At this point in time, the patient was experiencing explosive diarrhea. The image shows contrast has passed through the jejunum and normal ileum into the colon. The barium has reached the rectum. There is no evidence of a transition point. IMPRESSION: Rapid small bowel transit time and no evidence of obstruction Interpreted and Authenticated by: Edwar Ayala 05/16/22
--- NOTE | 2022-05-16 14:51 | General Surgery Progress Note ---
SUBJECTIVE Subjective Patient information: Note initiated : 05/16/22 at 2:31 pm Service Date, if different from initiated Date: [] Patient: Kristi Monroy 56 y/o F admitted on 05/14/22 for cold/flu symptoms. Chief Complaint: [] Post SBFT, normal study, patient passing large amount of explosive gas and stool. Pain has resolved. NGT removed at bedside Constitutional Vitals: Vital Signs Temp Pulse Resp BP Pulse Ox O2 Del Method O2 Flow Rate 99.9 F H 88 20 116/84 94 1 05/16/22 12:00 05/16/22 12:00 05/16/22 12:00 05/16/22 12:00 05/16/22 12:00 05/16/22 12:00 05/15/22 00:00 Period Temp Pulse Resp BP Sys/Taylor Pulse Ox O2 Del Method O2 Flow Rate Last 24 Hr 97.7 F-99.9 F 78-88 12-20 109-121/73-84 92-95 Room Air-Room Air Intake and Output 05/16/22 05/16/22 05/16/22 05:59 13:59 21:59 Intake Total 290 1200 Output Total 1100 325 Balance -810 875 Weight 219 lb 14.4 oz Patient Weight 05/17/22 05:59 Weight 219 lb 14.4 oz Intake & Output: Intake & Output 05/16/22 05/16/22 05/16/22 05:59 13:59 21:59 Intake Total 290 1200 Output Total 1100 325 Balance -810 875 Weight 219 lb 14.4 oz Intake: IV 50 1050 Dextrose 5%-Ns W/20Meq KCl 1, 1000 000 ml @ 125 mls/hr IV .Q8H [facility] Rx#:[id number] Zosyn 3.375 gm In Dextrose 5% 50 50 in Water 50 ml @ 100 mls/hr IV Q6H [facility] Rx#:[id number] Oral 240 150 Output: Gastric Drainage 800 Right Nare 800 Void Amount 300 325 Other: Meal popscickle Urine Appearance Clear Urine Color Bright Yellow Stool Size Large Stool Color Brown Stool Consistency Soft Formed Liquid # Bowel Movements 4 Exam: looks non toxic, conversant Respiratory Respiratory exam: Present normal respiratory exam Additional comments: non labored, normal effort Cardiovascular Cardiovascular exam: Present RRR GI/Abdominal Additional comments: soft, obese, non tender, no distension seen - NGT removed at bedside A/P Assessment and plan (1) Partial small bowel obstruction: Assessment and plan: Resolved SBO Remove NGT and start clears Check C diff given rapidity of diarrhea and that she has been on IV ABs Re check labs in AM Status: Acute Time Spent With Patient Time: Total time spent is greater than 50% in coordination of care (as documented) at patient's floor/unit and/or counseling patient:
[2022-05-17] MEDS: PIPERACILLIN SODIUM/TAZOBACTAM 3.375 GM in DEXTROSE 5% IN WATER 50 ML IV SCH ×2 (00:01→05:48)
[2022-05-17] MEDS: DEXTROSE 5%-NS W/20MEQ KCL 1,000 ML IV SCH ×3 (05:08→15:36)
[2022-05-17] MEDS: 0.9 % SODIUM CHLORIDE 10 ML SYRINGE IV SCH ×3 (05:50→22:00)
[2022-05-17 06:13] LABS: Hematocrit 37.3 % (34.1-44.9); Hemoglobin 11.8 g/dL (11.2-15.7); Mean Cell Volume 89.4 fL (80.0-100.0); Mean Corpuscular HGB Conc 31.6 g/dL (31.0-36.0); Mean Platelet Volume 9.9 fL (7.4-10.4); Platelet Count 224 K/mcL (140-440); RBC 4.17 M/mcL (3.59-5.38); WBC 8.2 K/mcL (4.5-11.0)
[2022-05-17 06:43] LABS: Blood Urea Nitrogen 9 mg/dL (6-20); Calcium 8.5 mg/dL (8.6-10.4); Carbon Dioxide 22 mmol/L (22-30); Chloride 107 mmol/L (96-108); Glomerular Filtration Rate 101; Glucose 186 mg/dL (70-105)
[2022-05-17] MEDS ORDERED: ACETAMINOPHEN 325 MG TABLET PO PRN (07:14)
[2022-05-17] MEDS: INSULIN LISPRO 1 UNIT/0.01 ML UNIT SQ SCH ×4 (07:30→21:46)
[2022-05-17] MEDS ORDERED: DEXTROSE 5%-NS W/20MEQ KCL 1,000 ML IV SCH (09:12)
--- NOTE | 2022-05-17 10:53 | General Surgery Progress Note ---
SUBJECTIVE Subjective Patient information: Note initiated : 05/17/22 at 10:49 am Service Date, if different from initiated Date: [] Patient: Kristi Monroy 56 y/o F admitted on 05/14/22 for cold/flu symptoms. Chief Complaint: [] HD #4 SBO Continues to feel markedly improved. SBFT yesterday read as normal without obstruction or other abnormality. Has done well with NGT out and passing large amounts of gas. No nausea or vomiting Constitutional Vitals: Vital Signs Temp Pulse Resp BP Pulse Ox O2 Del Method O2 Flow Rate 98.1 F 73 20 104/68 95 1 05/17/22 08:00 05/17/22 08:00 05/17/22 08:00 05/17/22 08:00 05/17/22 08:00 05/17/22 08:00 05/15/22 00:00 Period Temp Pulse Resp BP Sys/Taylor Pulse Ox O2 Del Method O2 Flow Rate Last 24 Hr 98.0 F-99.9 F 73-88 12-20 96-116/62-84 93-95 Room Air-Room Air Intake and Output 05/16/22 05/17/22 05/17/22 21:59 05:59 13:59 Intake Total 1700 802 50 Output Total 1300 375 Balance 400 427 50 Weight 217 lb 6.4 oz Intake & Output: Intake & Output 05/16/22 05/17/22 05/17/22 21:59 05:59 13:59 Intake Total 1700 802 50 Output Total 1300 375 Balance 400 427 50 Weight 217 lb 6.4 oz Intake: IV 1100 652 50 Dextrose 5%-Ns W/20Meq KCl 1, 1000 602 000 ml @ 125 mls/hr IV .Q8H [facility] Rx#:[id number] Zosyn 3.375 gm In Dextrose 5% 100 50 50 in Water 50 ml @ 100 mls/hr IV Q6H [facility] Rx#:[id number] Oral 600 150 Output: Gastric Drainage 600 Right Nare 600 Void Amount 300 125 Stool 400 250 Other: Stool Color Green Green Stool Consistency Watery Liquid Watery # Bowel Movements 3 Exam: Looks well, NAD Respiratory Respiratory exam: Present normal respiratory exam Additional comments: non labored, normal effort Cardiovascular Cardiovascular exam: Present RRR GI/Abdominal Additional comments: obese, soft, non tender, non distended Extremities Exam Additional comments: well perfused A/P Assessment and plan (1) Partial small bowel obstruction: Assessment and plan: Resolved SBO Regular Diet and [facility] follow up in 2-3 weeks and/or as needed Status: Acute Time Spent With Patient Time: Total time spent is greater than 50% in coordination of care (as documented) at patient's floor/unit and/or counseling patient:
[2022-05-18] MEDS: DEXTROSE 5%-NS W/20MEQ KCL 1,000 ML IV SCH ×3 (01:43→11:59)
[2022-05-18 06:51] LABS: Hematocrit 37.3 % (34.1-44.9); Hemoglobin 12.1 g/dL (11.2-15.7); Mean Cell Volume 89.2 fL (80.0-100.0); Mean Corpuscular HGB Conc 32.4 g/dL (31.0-36.0); Mean Platelet Volume 9.9 fL (7.4-10.4); Platelet Count 224 K/mcL (140-440); RBC 4.18 M/mcL (3.59-5.38); WBC 7.6 K/mcL (4.5-11.0)
[2022-05-18 07:15] LABS: Blood Urea Nitrogen 5 mg/dL (6-20); Calcium 8.6 mg/dL (8.6-10.4); Carbon Dioxide 23 mmol/L (22-30); Chloride 105 mmol/L (96-108); Glomerular Filtration Rate 101; Glucose 203 mg/dL (70-105)
--- NOTE | 2022-05-18 08:11 | XRay Report ---
HISTORY: Follow-up small bowel obstruction FINDINGS: Supine and erect images were obtained. There is a solitary loop of mildly dilated small bowel in the midabdomen which measures 4.2 cm on the supine view and 3.7 cm in diameter on the upright view.. There are several small air-fluid levels in nondilated colon and small intestine. The stomach is decompressed. Previously seen nasogastric tube has been removed. The isolated segment of dilated small bowel in the midabdomen is larger today than it had been at the time of the small bowel follow-through performed on 05/16/22. IMPRESSION: Short segment dilatation of the small bowel in the right mid abdomen. This is nonspecific finding Interpreted and Authenticated by: Edwar Ayala 05/18/22
[2022-05-18] MEDS: 0.9 % SODIUM CHLORIDE 10 ML SYRINGE IV SCH ×2 (08:35→13:09)
[2022-05-18] MEDS: INSULIN LISPRO 1 UNIT/0.01 ML UNIT SQ SCH ×2 (08:40→11:35)
== END 2022-05-18 13:20 | disposition home or self-care (01) | DRG 390 ==
LOC: ED 16:23 → MEDSUR 23:13
PROVIDERS: ADMIT Surgery Surgical Critical Care; ATTEND Surgery Surgical Critical Care